=== PATIENT | female | born 1975 | race Caucasian/White ===

== ENCOUNTER → 2016-11-12 | Outpatient (REF) | payer BC ==
[~2016-11-12] MED LIST: EFFE37.527 PO; IBUP80TA PO; LIDO1OIN2 TOP
== END ==
LOC: M SFHCWAGY 08:44
PROVIDERS: ATTEND Nurse Practitioner Women's Health
DX: Z12.4 Encounter for screening for malignant neoplasm of cervix (principal)

== ENCOUNTER → 2016-11-25 | Outpatient (CLI) | payer BC ==
--- NOTE | 2016-11-25 14:46 | REPMRS ---
Patient History The patient states she had a clinical breast exam in 11/26 Baseline Mammogram Family history of breast cancer in maternal cousin under age 50. Digital Woman Screen Mammo: November 25, 2016 - Exam #: [id number] Bilateral CC and MLO view(s) were taken. Technologist: Graciela Guevara, Technologist No prior studies available for comparison. FINDINGS: There are scattered fibroglandular densities. There is no evidence of dominant mass, architectural distortion, or clustered microcalcification typical of malignancy. ASSESSMENT: BI-RADS/ACR category 1 mammogram. Negative. Recommendation Routine screening mammogram of both breasts in 1 year (for women over age 40). This mammogram was interpreted with the aid of an FDA-approved computer-aided dectection system. Electronically Signed By: Sunny Kaur MD 11/25/16 5999
== END ==
LOC: M WHC 11:22
PROVIDERS: ATTEND Nurse Practitioner Women's Health
DX: Z12.31 Encounter for screening mammogram for malignant neoplasm of breast (principal); Z80.3 Family history of malignant neoplasm of breast

== ENCOUNTER → 2017-02-18 | Outpatient (CLI) | payer BC ==
[2017-02-18 18:09] LABS: FREE T4 0.85 NG/DL (0.76-1.46)
[2017-02-18 18:14] LABS: THYROID PEROXIDASE ANTIBODY < 28.0 U/ML (<60.0)
== END ==
LOC: M LAB 17:02
PROVIDERS: ATTEND Family Medicine
DX: E04.9 Nontoxic goiter, unspecified (principal)

== ENCOUNTER → 2017-02-22 | Outpatient (CLI) | payer BC ==
--- NOTE | 2017-02-23 07:17 | REP ---
Clinical: Nontoxic goiter. Technique: Real time dobbs scale evaluation using linear high frequency transducer. Findings: With the exception of 2 mm nonspecific cysts in the left lobe and 10.5 x 5.8 x 6.2 mm nonspecific nodule in the lower pole left lobe, the examination is unremarkable. Right lobe measures 4.5 x 1.6 x 1.6 cm. Left lobe measures 3.5 x 1.6 x 1.0 cm. Isthmus measures 1.4 mm in width. Impression: 10.5 mm nonspecific nodule in the lower pole left lobe. Otherwise normal thyroid ultrasound. Signed by Wayne Colunga MD 02/23/2017 07:08 A
== END ==
LOC: M RAD 14:45
PROVIDERS: ATTEND Family Medicine
DX: E04.1 Nontoxic single thyroid nodule (principal)

== ENCOUNTER → 2017-09-15 | Outpatient (CLI) | payer BC ==
[2017-09-15 09:26] LABS: ALBUMIN 4.3 GM/DL (3.2-5.2); ALBUMIN/GLOBULIN RATIO 1.54 (1.00-1.93); ALKALINE PHOSPHATASE 76 U/L (45-117); ALT/SGPT 29 U/L (12-78); ANION GAP 6 MEQ/L (8-16); AST/SGOT 17 U/L (7-37); BILIRUBIN,TOTAL 0.5 MG/DL (0.2-1.0); BLOOD UREA NITROGEN 14 MG/DL (7-18); CALCIUM LEVEL 8.8 MG/DL (8.5-10.1); CARBON DIOXIDE LEVEL 29 MEQ/L (21-32); CHLORIDE LEVEL 108 MEQ/L (98-107); CREATININE FOR GFR 0.86 MG/DL (0.55-1.02); FREE T4 0.98 NG/DL (0.76-1.46); GLOMERULAR FILTRATION RATE > 60.0 (>58); GLUCOSE, FASTING 84 MG/DL (70-105); POTASSIUM SERUM 4.1 MEQ/L (3.5-5.1); SODIUM LEVEL 143 MEQ/L (136-145); TOTAL PROTEIN 7.1 GM/DL (6.4-8.2)
== END ==
LOC: M LAB 08:24
DX: Z13.29 Encounter for screening for other suspected endocrine disorder (principal)
CPT/HCPCS: 84443

== ENCOUNTER → 2017-11-29 | Outpatient (CLI) | payer BC | LOC: M RAD 17:28 | DX: R51 Headache (principal) | CPT/HCPCS: 70450 ==

== ENCOUNTER → 2018-01-10 | Outpatient (CLI) | payer BC ==
[2018-01-10 19:05] LABS: ANION GAP 8 MEQ/L (8-16); BLOOD UREA NITROGEN 15 MG/DL (7-18); CARBON DIOXIDE LEVEL 23 MEQ/L (21-32); CHLORIDE LEVEL 106 MEQ/L (98-107); CPK CREATINE PHOSPHOKINASE 110 U/L (26-192); CREATININE FOR GFR 0.88 MG/DL (0.55-1.30); GLOMERULAR FILTRATION RATE > 60.0 (>58); GLUCOSE, FASTING 95 MG/DL (70-100); MAGNESIUM LEVEL 1.9 MG/DL (1.8-2.4); POTASSIUM SERUM 3.5 MEQ/L (3.5-5.1); SODIUM LEVEL 137 MEQ/L (136-145)
== END ==
LOC: M LAB 17:37
DX: A09 Infectious gastroenteritis and colitis, unspecified (principal)

== ENCOUNTER → 2018-06-05 | Outpatient (CLI) | payer BC ==
[2018-06-05 08:35] LABS: BASO % 0.3 % (0.0-1.0); HEMATOCRIT 42.6 % (36.0-47.0); HEMOGLOBIN 13.4 g/dl (12.0-15.5); IMMATURE GRANULOCYTE % 0.5 % (0-3.0); LYMPH # 1.4 10^3/uL (1.5-4.5); LYMPH % 23.1 % (24.0-44.0); MEAN CORPUSCULAR HEMOGLOBIN 25.6 pg (27.0-33.0); MEAN CORPUSCULAR HGB CONC 31.5 g/dl (32.0-36.5); MEAN CORPUSCULAR VOLUME 81.5 fl (80.0-96.0); MONO # 0.5 10^3/uL (0.0-0.8); NEUTROPHILS % 68.1 % (36.0-66.0); PLATELET COUNT, AUTOMATED 194 10^3/uL (150-450); RED BLOOD COUNT 5.23 10^6/uL (4.00-5.40); WHITE BLOOD COUNT 5.9 10^3/uL (4.0-10.0)
[2018-06-05 09:37] LABS: ANION GAP 8 MEQ/L (8-16); BLOOD UREA NITROGEN 18 MG/DL (7-18); CALCIUM LEVEL 8.4 MG/DL (8.5-10.1); CARBON DIOXIDE LEVEL 23 MEQ/L (21-32); CHLORIDE LEVEL 114 MEQ/L (98-107); CHOLESTEROL LEVEL 147 MG/DL (<200); CREATININE FOR GFR 1.04 MG/DL (0.55-1.30); GLOMERULAR FILTRATION RATE > 60.0 (>58); GLUCOSE, FASTING 85 MG/DL (70-100); HDL CHOLESTEROL 62 MG/DL (>40); LDL CHOLESTEROL 78 MG/DL (<100); NON-HDL-C 85 MG/DL; POTASSIUM SERUM 4.4 MEQ/L (3.5-5.1); SODIUM LEVEL 145 MEQ/L (136-145); TRIGLYCERIDES LEVEL 33 MG/DL (<150)
== END ==
LOC: M LAB 07:53
DX: E04.9 Nontoxic goiter, unspecified (principal); E66.8 Other obesity; R51 Headache
CPT/HCPCS: 84443

== ENCOUNTER → 2018-08-02 | Outpatient (CLI) | payer BC | LOC: M PAIN 16:00 | DX: G93.2 Benign intracranial hypertension (principal); G43.909 Migraine, unspecified, not intractable, without status migrainosus; F32.9 Major depressive disorder, single episode, unspecified; H18.51 Endothelial corneal dystrophy; Z79.899 Other long term (current) drug therapy; Z87.891 Personal history of nicotine dependence | CPT/HCPCS: G0463 ==

== ENCOUNTER → 2018-08-02 | Outpatient (CLI) | payer BC | LOC: M PAIN 16:01 | DX: G93.9 Disorder of brain, unspecified (principal); G89.29 Other chronic pain; F32.9 Major depressive disorder, single episode, unspecified; H18.51 Endothelial corneal dystrophy; G43.909 Migraine, unspecified, not intractable, without status migrainosus; E07.9 Disorder of thyroid, unspecified; Z79.899 Other long term (current) drug therapy; Z87.891 Personal history of nicotine dependence | CPT/HCPCS: G0463 ==

== ENCOUNTER → 2018-09-28 | Outpatient (CLI) | payer BC ==
[~2018-09-28] MED LIST changes: +EFFE37.5 PO; -EFFE37.527 PO; +LIDOCAINE 1% SDV INJ 30 ML VIAL As Ordered ONE; +MIDAZOLAM INJ 2 MG/2 ML VIAL (J2250) As Ordered ONE; +fentaNYL 100 MCG/2 ML INJECTION (J3010) As Ordered ONE
[2018-09-28 16:11] LABS: APPEARANCE, CSF CLEAR (CLEAR); COLOR, CSF COLORLESS (COLORLESS); CSF TUBE# CELL CNT TUBE 3
[2018-09-28 16:22] LABS: CSF TUBE# GLU TUBE 1; CSF TUBE# TP TUBE 1; GLUCOSE CSF 47 MG/DL (40-75); TOTAL PROTEIN,CSF 61 MG/DL (15-45)
--- NOTE | 2018-10-16 00:59 | ECWPNPC ---
PATIENT NAME: RIAN HWANG : 1975 GENDER: FEMALE VISIT DATE: 09/28/2018 DISCHARGE DATE: 09/28/18 1557 VISIT LOCKED DATE TIME: PHYSICIAN: MIGDALIA DE LA TORRE MD RESOURCE: MIGDALIA DE LA TORRE MD REASON FOR APPOINTMENT 1. SPINAL TAP HISTORY OF PRESENT ILLNESS HISTORY OF PRESENT ILLNESS: PAIN THE PATIENT DESCRIBES THE PAIN... FALL RISK SCREENING: SCREENING :NO FALLS IN THE PAST YEAR CURRENT MEDICATIONS TAKING SUDAFED 12 HOUR 120 MG TABLET EXTENDED RELEASE 1 TABLET NEEDED ORALLY EVERY 12 HRS, NOTES: BEEN A WHILE TAKING ALBUTEROL SULFATE HFA 108 (90 BASE) MCG/ACT AEROSOL SOLUTION 2 PUFFS NEEDED INHALATION EVERY 4 HRS PRN WHEEZING/CHEST TIGHTNESS, NOTES: NOT LATELY TAKING PRILOSEC 20 MG CAPSULE DELAYED RELEASE 2 CAPSULES ORALLY ONCE A DAY, NOTES: 09-28-18599 TAKING CYMBALTA 60 MG CAPSULE DELAYED RELEASE PARTICLES 1 CAPSULE ORALLY ONCE A DAY, NOTES: 09-28-18599 TAKING ACETAZOLAMIDE 250 MG TABLET 1 TABLET ORALLY BID, NOTES: 10 DAYS TAKING ZONISAMIDE 100 MG CAPSULE 1 CAPSULE ORALLY ONCE A DAY, NOTES: 599 TAKING RESTASIS 0.05 % EMULSION 1 DROP INTO AFFECTED EYE OPHTHALMIC TWICE A DAY, NOTES: 09-28 TAKING SYSTANE 0.4-0.3 % SOLUTION OPHTHALMIC , NOTES: 09-28-18599 TAKING CASH 128 5 % SOLUTION 1 DROP INTO AFFECTED EYE OPHTHALMIC EVERY 4 HRS, NOTES: 09-30-18599 TAKING GABAPENTIN 100 MG CAPSULE 1 CAPSULE ORALLY THREE TIMES A DAY, NOTES: HAS NOT TAKEN IN A LONG TIME TAKING NAPROXEN 500 MG TABLET 1 TABLET NEEDED ORALLY EVERY 12 HRS X 1 WEEK THEN NEEDED, NOTES: NOT LATELY UNKNOWN EFFEXOR XR 37.5 MG CAPSULE EXTENDED RELEASE 24 HOUR 1 CAPSULE WITH FOOD ORALLY ONCE A DAY UNKNOWN TYLENOL ARTHRITIS PAIN 1 TAB ORALLY BID UNKNOWN VITAMIN D (CHOLECALCIFEROL) 2000 TABLET 1 TABLET ORALLY ONCE A DAY UNKNOWN ZANAFLEX 4 MG TABLET 1 TABLET NEEDED ORALLY EVERY 8 HRS PRN MUSCLE SPASMS UNKNOWN ZITHROMAX Z-BONNIE 250 MG TABLET 2 TABLETS ON THE FIRST DAY, THEN 1 TABLET DAILY FOR 4 DAYS ORALLY ONCE A DAY UNKNOWN VENTOLIN HFA 108 (90 BASE) MCG/ACT AEROSOL SOLUTION 2 PUFFS NEEDED INHALATION EVERY 4 HRS PRN FOR WHEEZING AND CHEST TIGHTNESS UNKNOWN MULTIVITAMINS OTC TABLET 1 TABLET ORALLY ONCE A DAY MEDICATION LIST REVIEWED AND RECONCILED WITH THE PATIENT PAST MEDICAL HISTORY DEPRESSION 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 SURGICAL HISTORY D&C 2005 UTERINE ABLATION 2005 TUBAL LIGATION 2005 FAMILY HISTORY FATHER: , CAD, [place], LUNG CA, HTN, HYPERCHOLESTEROLEMIA, DIAGNOSED WITH HEART DISEASE, CANCER IN 4 MOTHER: , DM, KIDNEY DISEASE, HTN, HYPERCHOLESTEROLEMIA, DIAGNOSED WITH DIABETES, STROKE SIBLINGS: HTN SON(S): CONGENITAL MITRAL VALVE DISORDER MATERNAL AUNT: THYROID CANCER 4 BROTHER(S) , 4 SISTER(S) . 1 SON(S) , 1 DAUGHTER(S) - HEALTHY. NO OVARIAN, OR COLORECTAL CANCER, COUSIN DIAGNOSED WITH BREAST CANCERSISTER - TILTED HEART OF THE RIGHT ORIGINSISTER - HYPOTHYROIDBROTHERS - HTN. HOSPITALIZATION/MAJOR DIAGNOSTIC PROCEDURE NO HOSPITALIZATION HISTORY. REVIEW OF SYSTEMS REVIEWED BY: PROVIDER: . CONSTITUTIONAL: ANY CHANGE IN YOUR MEDICAL CONDITION? NO . CHILLS NO . FEVER NO . INFECTION: DO YOU HAVE NEW INFECTIONS? NO . DO YOU HAVE HISTORY OF MRSA? NO . MUSCULOSKELETAL: ANY NEW PATTERNS OF PAIN OR NUMBNESS? NO . GASTROENTEROLOGY: ANY NEW CHANGE IN BOWEL CONTROL? NO . GENITOURINARY: ANY NEW CHANGE IN BLADDER CONTROL? NO . IS THERE A CHANCE YOU COULD BE ? NO . HEMATOLOGY/LYMPH: DO YOU TAKE ANY BLOOD THINNERS? (FOR EXAMPLE- COUMADIN, PLAVIX, AGGRENOX, PLATEL, PRADAXA, OR XARELTO) NO . WHEN WAS YOUR LAST DOSE? DATE: TIME: . NEUROLOGY: HAVE YOU FALLEN IN THE PAST 12 MONTHS? NO . ANY NEW EXTREMITY NUMBNESS OR WEAKNESS? NO . CARDIOLOGY: DO YOU HAVE A PACEMAKER OR DEFIBRILLATOR? NO . RESPIRATORY: HAVE YOU BEEN SICK IN THE PAST WEEK? NO . FEVER NO . FLU LIKE SYMPTOMS? NO . COUGH NO . INTEGUMENTARY: DO YOU HAVE ANY RASHES OR OPEN SORES? NO . ALLERGIC/IMMUNO: ARE YOU ALLERGIC TO IV DYE? NO . ANY NEW ALLERGIES? NO . PSYCHIATRIC: DO YOU HAVE THOUGHTS OF HURTING YOURSELF OR SOMEONE ELSE? NO . ARE YOU ABUSED, NEGLECTED, OR IN AN UNSAFE ENVIRONMENT? NO . ENDOCRINOLOGY: ARE YOU DIABETIC? NO . OTHER: DO YOU NEED ANY PRESCRIPTIONS? NO . IF YES, PLEASE LIST: ____ . ANY NEW PROBLEMS WITH YOUR MEDICATIONS? NO . WHEN DID YOU LAST EAT? ____LAST NIGHT 7 PM . WHEN DID YOU LAST DRINK? ____1140 THIS MORNING . WHAT DID YOU LAST DRINK? ____WATER . NAME OF PERSON DRIVING YOU HOME? ____MICHAEL . DO YOU HAVE ANY OTHER QUESTIONS OR CONCERNS NO . VITAL SIGNS WT 159.2 LBS, HT 59.5 IN, BMI 31.61 INDEX, BP 151/91 MM HG, HR 87 /MIN, RR 16 /MIN, TEMP 97.1 F, OXYGEN SAT % 99%, NA INITIALS SC 12:45, REVIEWED BY: KG. 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 PROCEDURE CODES 07704 MOD SED SAME PHYS/QHP 5/>YRS 974[address] MOD SED SAME PHYS/[place] [address] SPINAL FLUID TAP DIAGNOSTIC DISPOSITION & COMMUNICATION FOLLOW UP REASON: F/UP WITH NEUROLOGIST ELECTRONICALLY SIGNED BY MIGDALIA DE LA TORRE MD, MD ON 10/15/2018 AT 05:49 PM EST DISCLAIMER : THIS IS A VISIT SUMMARY EXTRACTED FROM THE [employer] CHART. IT IS NOT A COPY OF THE [employer] PROGRESS NOTE. MTDD
== END ==
LOC: M PAIN 12:30
PROVIDERS: ATTEND Anesthesiology
DX: G93.2 Benign intracranial hypertension (principal); G43.909 Migraine, unspecified, not intractable, without status migrainosus; H18.51 Endothelial corneal dystrophy; F32.9 Major depressive disorder, single episode, unspecified; Z79.899 Other long term (current) drug therapy
CPT/HCPCS: 36415; 62270; 82784; 82945; 83916; 84157; 87070; 87102; 87205; 87252; 87483; 88108; 88313; 89050; 99152; 99153; J2250; J3010

== ENCOUNTER → 2019-01-03 | Outpatient (REF) | payer BC ==
[~2019-01-03] MED LIST changes: -LIDOCAINE 1% SDV INJ 30 ML VIAL As Ordered ONE; -MIDAZOLAM INJ 2 MG/2 ML VIAL (J2250) As Ordered ONE; -fentaNYL 100 MCG/2 ML INJECTION (J3010) As Ordered ONE
[2019-01-05 14:26] LABS: HPV HYBRID CAPTURE II Negative (Negative)
== END ==
LOC: M SFHCWAGY 08:32
PROVIDERS: ATTEND Nurse Practitioner Women's Health
DX: Z12.4 Encounter for screening for malignant neoplasm of cervix (principal)
CPT/HCPCS: 87624; G0123

== ENCOUNTER → 2019-03-21 | Outpatient (CLI) | payer BC ==
--- NOTE | 2019-03-21 16:27 | REPMRS ---
Patient History The patient states she had a clinical breast exam in 12/2018. Family history of breast cancer at age 42 in maternal cousin. No Hormone Replacement Therapy 3D TOMOSYNTHESIS WAS PERFORMED. [facility] for [facility] 11.6%. Digital Woman Screen Mammo: March 21, 2019 - Exam #: [id number] Bilateral CC and MLO view(s) were taken. Technologist: Carolin Barbosa, Technologist Prior study comparison: November 25, 2016, digital woman screen mammo performed at [facility]. FINDINGS: There are scattered fibroglandular densities. There has been no change in the appearance of the mammogram from the prior studies. There is a mild amount of residual fibroglandular tissue which is fairly symmetric. There is no interval development of dominant mass, architectural distortion, or clustered microcalcification suggestive of malignancy. Assessment: BI-RADS/ACR category 1 mammogram. Negative Mammogram. Recommendation Routine screening mammogram in 1 year (for women over age 40). This mammogram was interpreted with the aid of an FDA-approved computer-aided dectection system. Electronically Signed By: Jaime Godfrey MD 03/21/19 8447
== END ==
LOC: M WHC 14:54
PROVIDERS: ATTEND Nurse Practitioner Women's Health
DX: Z12.31 Encounter for screening mammogram for malignant neoplasm of breast (principal); Z80.3 Family history of malignant neoplasm of breast

== ENCOUNTER → 2019-06-26 | Outpatient (CLI) | payer BC ==
[2019-06-26 10:05] LABS: BASO % 0.4 % (0.0-1.0); EOS % 0.2 % (0.0-3.0); HEMATOCRIT 40.9 % (36.0-47.0); HEMOGLOBIN 12.8 g/dl (12.0-15.5); LYMPH # 1.4 10^3/uL (1.5-5.0); LYMPH % 28.8 % (24.0-44.0); MEAN CORPUSCULAR HEMOGLOBIN 26.2 pg (27.0-33.0); MEAN CORPUSCULAR HGB CONC 31.3 g/dl (32.0-36.5); MEAN CORPUSCULAR VOLUME 83.6 fl (80.0-96.0); MONO # 0.4 10^3/uL (0.0-0.8); MONO % 8.2 % (0.0-5.0); PLATELET COUNT, AUTOMATED 161 10^3/uL (150-450); RED BLOOD COUNT 4.89 10^6/uL (4.00-5.40); WHITE BLOOD COUNT 4.9 10^3/uL (4.0-10.0)
[2019-06-26 10:16] LABS: BLOOD UREA NITROGEN 20 MG/DL (7-18); CALCIUM LEVEL 8.9 MG/DL (8.5-10.1); CARBON DIOXIDE LEVEL 24 MEQ/L (21-32); CHLORIDE LEVEL 115 MEQ/L (98-107); CHOLESTEROL LEVEL 166 MG/DL (<200); CHOLESTEROL RISK RATIO 2.371 (<5); CREATININE FOR GFR 1.01 MG/DL (0.55-1.30); FREE T4 0.68 NG/DL (0.76-1.46); GLOMERULAR FILTRATION RATE > 60.0 (>58); GLUCOSE, FASTING 86 MG/DL (70-100); HDL CHOLESTEROL 70 MG/DL (>40); LDL CHOLESTEROL 85 MG/DL (<100); NON-HDL-C 96 MG/DL; POTASSIUM SERUM 4.2 MEQ/L (3.5-5.1); SODIUM LEVEL 143 MEQ/L (136-145); TRIGLYCERIDES LEVEL 54 MG/DL (<150)
== END ==
LOC: M SMT 08:17
PROVIDERS: ATTEND Physician Assistant
DX: E04.9 Nontoxic goiter, unspecified (principal); E66.8 Other obesity; R51 Headache

== ENCOUNTER → 2019-11-06 | Outpatient (CLI) | payer BC ==
[2019-11-06 10:09] LABS: BASO % 0.5 % (0.0-1.0); EOS % 0.2 % (0.0-3.0); HEMATOCRIT 41.5 % (36.0-47.0); HEMOGLOBIN 13.3 g/dl (12.0-15.5); LYMPH # 1.6 10^3/uL (1.5-5.0); LYMPH % 28.6 % (24.0-44.0); MEAN CORPUSCULAR HEMOGLOBIN 26.3 pg (27.0-33.0); MEAN CORPUSCULAR VOLUME 82.2 fl (80.0-96.0); MONO # 0.5 10^3/uL (0.0-0.8); MONO % 9.4 % (0.0-5.0); NEUTROPHILS # 3.4 10^3/uL (1.5-8.5); NEUTROPHILS % 60.8 % (36.0-66.0); PLATELET COUNT, AUTOMATED 146 10^3/uL (150-450); RED BLOOD COUNT 5.05 10^6/uL (4.00-5.40); WHITE BLOOD COUNT 5.6 10^3/uL (4.0-10.0)
[2019-11-06 10:24] LABS: BLOOD UREA NITROGEN 18 MG/DL (7-18); CALCIUM LEVEL 8.8 MG/DL (8.5-10.1); CARBON DIOXIDE LEVEL 25 MEQ/L (21-32); CHLORIDE LEVEL 112 MEQ/L (98-107); CREATININE FOR GFR 1.06 MG/DL (0.55-1.30); FREE T4 0.79 NG/DL (0.76-1.46); GLOMERULAR FILTRATION RATE > 60.0 (>58); GLUCOSE, FASTING 87 MG/DL (70-100); POTASSIUM SERUM 3.9 MEQ/L (3.5-5.1); SODIUM LEVEL 142 MEQ/L (136-145)
== END ==
LOC: M WUC 08:13
PROVIDERS: ATTEND Physician Assistant
DX: R60.9 Edema, unspecified (principal)

== ENCOUNTER → 2020-08-29 | Outpatient (CLI) | payer BC ==
--- NOTE | 2020-08-29 09:39 | REPMRS ---
Patient History The patient states she had a clinical breast exam in 03/01 Family history of breast cancer at age 42 in maternal cousin. No Hormone Replacement Therapy Digital Woman Screen Mammo: August 29, 2020 - Exam #: [id number] Bilateral CC and MLO view(s) were taken. Technologist: Graciela Guevara, Technologist Prior study comparison: March 21, 2019, [facility] November 25, 2016, [facility] screen [facility]. FINDINGS: The breast tissue is almost entirely fat. The Vol[facility] volumetric breast density category is: A. There has been no change in the appearance of the mammogram from the prior studies. There is no interval development of dominant mass, architectural distortion, or grouped microcalcification typical of malignancy. 3-D tomosynthesis shows no additional findings. Assessment: BI-RADS/ACR category 1 mammogram. Negative Mammogram. Recommendation Routine screening mammogram of both breasts in 1 year (for women over age 40). This patient's [facility] Lifetime Breast Cancer RIsk is estimated at 11.4 %. This mammogram was interpreted with the aid of an FDA-approved computer-aided dectection system. Electronically Signed By: Sunny Kaur MD 08/29/20 0908
== END ==
LOC: M WHC 08:49
PROVIDERS: ATTEND Physician Assistant
DX: Z12.31 Encounter for screening mammogram for malignant neoplasm of breast (principal)

== ENCOUNTER → 2020-11-07 | Outpatient (CLI) | payer BC ==
[2020-11-07 07:16] LABS: BASO % 0.8 % (0.0-1.0); EOS % 0.2 % (0.0-3.0); HEMATOCRIT 44.7 % (36.0-47.0); HEMOGLOBIN 13.8 g/dl (12.0-15.5); LYMPH # 1.1 10^3/uL (1.5-5.0); LYMPH % 22.6 % (24.0-44.0); MEAN CORPUSCULAR HEMOGLOBIN 25.7 pg (27.0-33.0); MEAN CORPUSCULAR HGB CONC 30.9 g/dl (32.0-36.5); MEAN CORPUSCULAR VOLUME 83.4 fl (80.0-96.0); MONO # 0.6 10^3/uL (0.0-0.8); MONO % 13.2 % (2.0-8.0); PLATELET COUNT, AUTOMATED 157 10^3/uL (150-450); RED BLOOD COUNT 5.36 10^6/uL (4.00-5.40); WHITE BLOOD COUNT 4.8 10^3/uL (4.0-10.0)
[2020-11-07 07:56] LABS: BILIRUBIN,TOTAL 0.3 MG/DL (0.2-1.0); CREATININE FOR GFR 1.07 MG/DL (0.55-1.30); FREE T4 0.77 NG/DL (0.76-1.46); GLOMERULAR FILTRATION RATE 59.6 (>58); POTASSIUM SERUM 3.8 MEQ/L (3.5-5.1); THYROID STIMULATING HORMONE 2.86 uIU/ML (0.358-3.740); TOTAL PROTEIN 6.9 GM/DL (6.4-8.2)
== END ==
LOC: M LAB 05:58
PROVIDERS: ATTEND Physician Assistant
DX: R53.83 Other fatigue (principal)

== ENCOUNTER → 2021-08-04 | Outpatient (CLI) | payer BC ==
[2021-08-04 08:18] LABS: BASO % 0.4 % (0.0-1.0); HEMOGLOBIN 14.1 g/dl (12.0-15.5); LYMPH # 0.8 10^3/uL (1.5-5.0); MEAN CORPUSCULAR HEMOGLOBIN 25.8 pg (27.0-33.0); MEAN CORPUSCULAR HGB CONC 31.3 g/dl (32.0-36.5); MEAN CORPUSCULAR VOLUME 82.4 fl (80.0-96.0); MONO # 0.4 10^3/uL (0.0-0.8); MONO % 8.9 % (2.0-8.0); NEUTROPHILS # 3.4 10^3/uL (1.5-8.5); NEUTROPHILS % 73.3 % (36.0-66.0); PLATELET COUNT, AUTOMATED 165 10^3/uL (150-450); RED BLOOD COUNT 5.46 10^6/uL (4.00-5.40); WHITE BLOOD COUNT 4.6 10^3/uL (4.0-10.0)
--- NOTE | 2021-08-04 08:30 | REP ---
INDICATION: GENERALIZED ANXIETY DISORDER COMPARISON: 08/25/2006 TECHNIQUE: PA and lateral. FINDINGS: The mediastinum and cardiac silhouette are normal. The lung blas are clear and without acute consolidation, effusion, or pneumothorax. The skeletal structures are intact and normal. Previously identified right upper lobe opacity is not visible on current examination and likely resolved. IMPRESSION: No acute cardiopulmonary process. <Electronically signed by Wayne Colunga > 08/04/21 0831
[2021-08-04 08:54] LABS: ALBUMIN 4.1 GM/DL (3.2-5.2); ALT/SGPT 18 U/L (12-78); BILIRUBIN,TOTAL 0.3 MG/DL (0.2-1.0); BLOOD UREA NITROGEN 14 MG/DL (7-18); CALCIUM LEVEL 8.8 MG/DL (8.5-10.1); CARBON DIOXIDE LEVEL 24 MEQ/L (21-32); CHLORIDE LEVEL 115 MEQ/L (98-107); CHOLESTEROL LEVEL 139 MG/DL (<200); CHOLESTEROL RISK RATIO 2.278 (<5); CREATININE FOR GFR 1.03 MG/DL (0.55-1.30); FREE T4 0.84 NG/DL (0.76-1.46); GLOMERULAR FILTRATION RATE > 60.0 (>58); GLUCOSE, FASTING 93 MG/DL (70-100); HDL CHOLESTEROL 61 MG/DL (>40); LDL CHOLESTEROL 71 MG/DL (<100); NON-HDL-C 78 MG/DL; POTASSIUM SERUM 4.1 MEQ/L (3.5-5.1); SODIUM LEVEL 144 MEQ/L (136-145); TOTAL PROTEIN 6.9 GM/DL (6.4-8.2); TRIGLYCERIDES LEVEL 33 MG/DL (<150)
== END ==
LOC: M RAD 07:28
PROVIDERS: ATTEND Physician Assistant
DX: F41.1 Generalized anxiety disorder (principal)

== ENCOUNTER 2022-06-05 13:06 | Emergency (ER) | payer BC ==
[~2022-06-05] VITALS: Ht 149.9 cm; Wt 72.4 kg
[2022-06-05] MEDS ORDERED: FLUO10CA18 (13:17)
[2022-06-05] MEDS ORDERED: ESOM40CA35 (13:17)
[2022-06-05] MEDS ORDERED: GABA800T4 (13:17)
[2022-06-05] MEDS ORDERED: FLUO1OPD (13:17)
[2022-06-05 14:19] LABS: BASO % 0.2 % (0.0-1.0); HEMATOCRIT 40.5 % (36.0-47.0); HEMOGLOBIN 12.5 g/dl (12.0-15.5); LYMPH # 1.7 10^3/uL (1.5-5.0); LYMPH % 25.2 % (24.0-44.0); MEAN CORPUSCULAR HGB CONC 30.9 g/dl (32.0-36.5); MEAN CORPUSCULAR VOLUME 84.2 fl (80.0-96.0); MONO # 0.6 10^3/uL (0.0-0.8); MONO % 9.2 % (2.0-8.0); NEUTROPHILS # 4.3 10^3/uL (1.5-8.5); NEUTROPHILS % 65.1 % (36.0-66.0); PLATELET COUNT, AUTOMATED 192 10^3/uL (150-450); RED BLOOD COUNT 4.81 10^6/uL (4.00-5.40); WHITE BLOOD COUNT 6.7 10^3/uL (4.0-10.0)
[2022-06-05 14:43] LABS: ERYTHROCYTE SEDIMENTATION RATE 20 mm/hr (0-20)
[2022-06-05 14:54] LABS: ALBUMIN 4.1 GM/DL (3.2-5.2); ALT/SGPT 19 U/L (12-78); BILIRUBIN,DIRECT 0.1 MG/DL (0.0-0.2); BILIRUBIN,TOTAL 0.4 MG/DL (0.2-1.0); BLOOD UREA NITROGEN 8 MG/DL (7-18); CALCIUM LEVEL 8.7 MG/DL (8.5-10.1); CARBON DIOXIDE LEVEL 30 MEQ/L (21-32); CHLORIDE LEVEL 103 MEQ/L (98-107); GLOMERULAR FILTRATION RATE > 60.0 (>58); GLUCOSE, FASTING 79 MG/DL (70-100); LIPASE 74 U/L (73-393); POTASSIUM SERUM 3.6 MEQ/L (3.5-5.1); SODIUM LEVEL 138 MEQ/L (136-145); TOTAL PROTEIN 7.2 GM/DL (6.4-8.2)
[2022-06-05] MEDS ORDERED: METH-1164 PO (15:22)
[2022-06-05 15:28] VITALS: BP 131/68
== END 2022-06-05 15:54 | disposition home or self-care (01) ==
LOC: M ED 13:06
DX: R10.12 Left upper quadrant pain (principal); G89.29 Other chronic pain; M54.50 Low back pain, unspecified; Z86.16 Personal history of COVID-19; F41.9 Anxiety disorder, unspecified; K21.9 Gastro-esophageal reflux disease without esophagitis; Z79.899 Other long term (current) drug therapy

== ENCOUNTER → 2022-06-09 | Outpatient (CLI) | payer BC ==
[~2022-06-09] MED LIST changes: +ESOM40CA35; +FLUO10CA18; +FLUO1OPD; +GABA800T4; +METH-1164 PO
[2022-06-09 08:32] LABS: HEMATOCRIT 42.5 % (36.0-47.0); HEMOGLOBIN 13.3 g/dl (12.0-15.5); LYMPH # 1.2 10^3/uL (1.5-5.0); LYMPH % 26.1 % (24.0-44.0); MEAN CORPUSCULAR HEMOGLOBIN 26.3 pg (27.0-33.0); MEAN CORPUSCULAR HGB CONC 31.3 g/dl (32.0-36.5); MONO # 0.4 10^3/uL (0.0-0.8); MONO % 9.3 % (2.0-8.0); NEUTROPHILS # 3.1 10^3/uL (1.5-8.5); NEUTROPHILS % 64.2 % (36.0-66.0); PLATELET COUNT, AUTOMATED 209 10^3/uL (150-450); RED BLOOD COUNT 5.06 10^6/uL (4.00-5.40); WHITE BLOOD COUNT 4.8 10^3/uL (4.0-10.0)
[2022-06-09 09:03] LABS: ALBUMIN 4.2 GM/DL (3.2-5.2); BILIRUBIN,TOTAL 0.3 MG/DL (0.2-1.0); CALCIUM LEVEL 9.5 MG/DL (8.5-10.1); CHOLESTEROL RISK RATIO 2.32 (<5); CREATININE FOR GFR 1.09 MG/DL (0.55-1.30); FREE T4 0.92 NG/DL (0.76-1.46); GLOMERULAR FILTRATION RATE 57.8 (>58); POTASSIUM SERUM 4.2 MEQ/L (3.5-5.1); THYROID STIMULATING HORMONE 1.41 uIU/ML (0.358-3.740); TOTAL PROTEIN 7.5 GM/DL (6.4-8.2)
[2022-06-09 09:26] LABS: TOTAL 25(OH) VITAMIN D 32.2 NG/ML (30.0-100.0)
== END ==
LOC: M LAB 07:37
PROVIDERS: ATTEND Family Medicine
DX: E55.9 Vitamin D deficiency, unspecified (principal)

== ENCOUNTER → 2022-06-12 | Outpatient (CLI) | payer BC | LOC: M RAD 08:29 | PROVIDERS: ATTEND Nurse Practitioner Adult Health | DX: M54.50 Low back pain, unspecified (principal) ==

== ENCOUNTER → 2022-11-25 | Outpatient (CLI) | payer BC | LOC: M WHC 08:55 | PROVIDERS: ATTEND Advanced Practice Midwife | DX: Z12.31 Encounter for screening mammogram for malignant neoplasm of breast (principal) ==

== ENCOUNTER → 2022-11-25 | Outpatient (REF) | payer BC | LOC: M PLALAB 09:25 | PROVIDERS: ATTEND Advanced Practice Midwife | DX: Z12.4 Encounter for screening for malignant neoplasm of cervix (principal) | CPT/HCPCS: 87624; G0123 ==

== ENCOUNTER → 2022-12-02 | Outpatient (CLI) | payer BC | LOC: M ADAMS 07:59 | PROVIDERS: ATTEND Nurse Practitioner Adult Health | DX: M54.12 Radiculopathy, cervical region (principal) ==

== ENCOUNTER → 2023-04-21 | Outpatient (CLI) | payer BC ==
[2023-04-21 10:45] LABS: HEMATOCRIT 43.1 % (36.0-47.0); HEMOGLOBIN 14.3 g/dl (12.0-15.5); LYMPH # 1.7 10^3/uL (1.5-5.0); LYMPH % 30.6 % (24.0-44.0); MEAN CORPUSCULAR HEMOGLOBIN 27.9 pg (27.0-33.0); MEAN CORPUSCULAR HGB CONC 33.2 g/dl (32.0-36.5); MEAN CORPUSCULAR VOLUME 84.2 fl (80.0-96.0); MONO # 0.5 10^3/uL (0.0-0.8); MONO % 9.6 % (2.0-8.0); NEUTROPHILS # 3.3 10^3/uL (1.5-8.5); NEUTROPHILS % 59.4 % (36.0-66.0); PLATELET COUNT, AUTOMATED 170 10^3/uL (150-450); RED BLOOD COUNT 5.12 10^6/uL (4.00-5.40); WHITE BLOOD COUNT 5.5 10^3/uL (4.0-10.0)
[2023-04-21 11:24] LABS: ALKALINE PHOSPHATASE 79 U/L (46-116); ALT/SGPT 18 U/L (7.0-40); AST/SGOT 10 U/L (<34); BILIRUBIN,TOTAL 0.3 MG/DL (0.3-1.2); BLOOD UREA NITROGEN 17 MG/DL (9-23); CALCIUM LEVEL 9.5 MG/DL (8.5-10.1); CARBON DIOXIDE LEVEL 31 MMOL/L (20-31); CHLORIDE LEVEL 107 MMOL/L (98-107); CHOLESTEROL LEVEL 167 MG/DL (<200); CHOLESTEROL RISK RATIO 2.26 (<5); FREE T4 0.96 NG/DL (0.89-1.76); GLOMERULAR FILTRATION RATE > 60.0 (>58); GLUCOSE, FASTING 81 MG/DL (60-100); HDL CHOLESTEROL 73.6 MG/DL (>40); LDL CHOLESTEROL 74.2 MG/DL (<100); NON-HDL-C 93.4 MG/DL; POTASSIUM SERUM 4.6 MMOL/L (3.5-5.1); SODIUM LEVEL 143 MMOL/L (136-145); THYROID STIMULATING HORMONE 1.617 uIU/ML (0.55-4.78); TOTAL 25(OH) VITAMIN D 29.8 NG/ML (20.0-100.0); TOTAL PROTEIN 6.8 G/DL (5.7-8.2); TRIGLYCERIDES LEVEL 96 MG/DL (<150)
== END ==
LOC: M PLAIMG 07:47
PROVIDERS: ATTEND Nurse Practitioner Adult Health
DX: M25.552 Pain in left hip (principal); M16.12 Unilateral primary osteoarthritis, left hip; E55.9 Vitamin D deficiency, unspecified; R03.0 Elevated blood-pressure reading, without diagnosis of hypertension; E66.9 Obesity, unspecified

== ENCOUNTER → 2023-08-16 | Outpatient (CLI) | payer OTHER ==
[~2023-08-16] MED LIST changes: -EFFE37.5 PO; +EFFE37.52 PO; +ISOVUE-300 61% 100ML VIAL As Ordered ONE; +LIDOCAINE 1% MDV 20ML VIAL As Ordered ONE; +methylPREDNISolone SUSP 40MG/ML 1ML VIAL (DEPO MEDROL) As Ordered ONE
== END ==
LOC: M RAD 14:59
PROVIDERS: ATTEND Physician Assistant
DX: M16.12 Unilateral primary osteoarthritis, left hip (principal)
CPT/HCPCS: 20610; 77002; J1030; Q9967

== ENCOUNTER → 2023-08-25 | Outpatient (REF) ==
[~2023-08-25] MED LIST changes: -ISOVUE-300 61% 100ML VIAL As Ordered ONE; -LIDOCAINE 1% MDV 20ML VIAL As Ordered ONE; -methylPREDNISolone SUSP 40MG/ML 1ML VIAL (DEPO MEDROL) As Ordered ONE
== END ==
LOC: M EMP 12:00
PROVIDERS: ATTEND Family Medicine
DX: Z11.52 Encounter for screening for COVID-19 (principal)

== ENCOUNTER → 2023-11-08 | Outpatient (REF) | payer BC ==
[2023-11-08 14:32] LABS: HEMATOCRIT 41.1 % (36.0-47.0); LYMPH # 1.8 10^3/uL (1.5-5.0); LYMPH % 32.7 % (24.0-44.0); MEAN CORPUSCULAR HEMOGLOBIN 27.1 pg (27.0-33.0); MEAN CORPUSCULAR HGB CONC 31.6 g/dl (32.0-36.5); MEAN CORPUSCULAR VOLUME 85.6 fl (80.0-96.0); MONO # 0.5 10^3/uL (0.0-0.8); MONO % 8.7 % (2.0-8.0); NEUTROPHILS # 3.2 10^3/uL (1.5-8.5); NEUTROPHILS % 58.4 % (36.0-66.0); PLATELET COUNT, AUTOMATED 179 10^3/uL (150-450); WHITE BLOOD COUNT 5.4 10^3/uL (4.0-10.0)
[2023-11-08 14:43] LABS: TOTAL 25(OH) VITAMIN D 32.4 NG/ML (20.0-100.0)
[2023-11-08 14:44] LABS: FREE T4 0.97 NG/DL (0.89-1.76)
[2023-11-08 14:47] LABS: ALBUMIN 3.9 G/DL (3.2-5.2); ALKALINE PHOSPHATASE 84 U/L (46-116); ALT/SGPT 22 U/L (7.0-40); AST/SGOT 14 U/L (<34); BILIRUBIN,TOTAL 0.4 MG/DL (0.3-1.2); BLOOD UREA NITROGEN 13 MG/DL (9-23); CALCIUM LEVEL 8.8 MG/DL (8.5-10.1); CARBON DIOXIDE LEVEL 32 MMOL/L (20-31); CHLORIDE LEVEL 112 MMOL/L (98-107); CHOLESTEROL LEVEL 184 MG/DL (<200); CHOLESTEROL RISK RATIO 2.76 (<5); CREATININE FOR GFR 0.89 MG/DL (0.55-1.30); GLOMERULAR FILTRATION RATE > 60.0 (>58); GLUCOSE, FASTING 81 MG/DL (60-100); HDL CHOLESTEROL 66.6 MG/DL (>40); LDL CHOLESTEROL 99.4 MG/DL (<100); NON-HDL-C 117.4 MG/DL; POTASSIUM SERUM 4.2 MMOL/L (3.5-5.1); SODIUM LEVEL 140 MMOL/L (136-145); TOTAL PROTEIN 6.6 G/DL (5.7-8.2); TRIGLYCERIDES LEVEL 90 MG/DL (<150)
== END ==
LOC: M LABDRWAD 12:26
PROVIDERS: ATTEND Nurse Practitioner Adult Health
DX: E55.9 Vitamin D deficiency, unspecified (principal); G93.2 Benign intracranial hypertension

== ENCOUNTER → 2023-11-24 | Outpatient (CLI) | payer OTHER ==
[~2023-11-24] MED LIST changes: +ISOVUE-300 61% 100ML VIAL As Ordered ONE; +LIDOCAINE 1% MDV 20ML VIAL As Ordered ONE; +methylPREDNISolone SUSP 40MG/ML 1ML VIAL (DEPO MEDROL) As Ordered ONE
== END ==
LOC: M RAD 15:24
PROVIDERS: ATTEND Physician Assistant
DX: M16.12 Unilateral primary osteoarthritis, left hip (principal)
CPT/HCPCS: 20610; 77002; J1030; Q9967

== ENCOUNTER → 2024-03-21 | Outpatient (CLI) | payer BC, OTHER ==
[~2024-03-21] MED LIST changes: +FLUO-290; -FLUO10CA18; -ISOVUE-300 61% 100ML VIAL As Ordered ONE; -LIDOCAINE 1% MDV 20ML VIAL As Ordered ONE; -methylPREDNISolone SUSP 40MG/ML 1ML VIAL (DEPO MEDROL) As Ordered ONE
== END ==
LOC: M WHC 09:00
PROVIDERS: ATTEND Advanced Practice Midwife
DX: Z12.31 Encounter for screening mammogram for malignant neoplasm of breast (principal)

== ENCOUNTER → 2024-05-15 | Outpatient (REF) | payer BC ==
[~2024-05-15] MED LIST changes: +GABA-1635; -GABA800T4
== END ==
LOC: M LAB REF 17:02
PROVIDERS: ATTEND Nurse Practitioner Adult Health
DX: R63.5 Abnormal weight gain (principal)

== ENCOUNTER 2024-08-31 15:50 | Emergency (ER) | payer OTHER, BC ==
[~2024-08-31] VITALS: Ht 149.9 cm; Wt 73.8 kg
[~2024-08-31 15:50] MED LIST changes: -ESOM40CA35; +ESOM40CA35 PO; -FLUO-290; +FLUO-290 PO; -FLUO1OPD; +FLUO1OPD OU
[2024-08-31] MEDS: KETOROLAC 30 MG/ML 1ML VIAL IM ONE (19:10)
[2024-08-31] MEDS: LIDOCAINE 5% (LIDODERM) PATCH TD ONE (19:10)
[2024-08-31] MEDS: methocarbamoL 500 MG TAB PO ONE (20:30)
[2024-08-31 20:57] VITALS: BP 190/86; TEMP 97.8; O2SAT 100
[2024-08-31] MEDS ORDERED: METH-1164 PO (21:05)
[2024-09-01] MEDS ORDERED: MEDR4PAK PO (23:44)
[2024-09-01] MEDS ORDERED: MELO15TA28 PO (23:44)
== END 2024-08-31 21:20 | disposition home or self-care (01) ==
LOC: M ED 15:50
DX: M25.552 Pain in left hip (principal); E04.0 Nontoxic diffuse goiter; K21.9 Gastro-esophageal reflux disease without esophagitis; Z79.1 Long term (current) use of non-steroidal anti-inflammatories (NSAID); Z79.899 Other long term (current) drug therapy
CPT/HCPCS: 96372; 99283; J1885

== ENCOUNTER 2024-09-01 19:42 | Emergency (ER) | payer OTHER, BC ==
[~2024-09-01] VITALS: Ht 149.9 cm; Wt 73.8 kg
[2024-09-01] MEDS: KETOROLAC 30 MG/ML 1ML VIAL IM ONE (21:10)
[2024-09-01] MEDS: CYCLOBENZAPRINE 5MG TABLET PO ONE (21:10)
[2024-09-01] MEDS: diazePAM 5MG TABLET PO ONE (21:11)
[2024-09-01] MEDS ORDERED: MELO15TA28 PO (23:44)
[2024-09-01] MEDS ORDERED: MEDR4PAK PO (23:44)
[2024-09-01 23:52] VITALS: BP 159/81; TEMP 97.5; O2SAT 95
== END 2024-09-01 23:50 | disposition home or self-care (01) ==
LOC: M ED 19:42
DX: M16.12 Unilateral primary osteoarthritis, left hip (principal); M47.896 Other spondylosis, lumbar region; F41.9 Anxiety disorder, unspecified; Z79.1 Long term (current) use of non-steroidal anti-inflammatories (NSAID); Z79.899 Other long term (current) drug therapy
CPT/HCPCS: 73502; 96372; 99284; J1885

== ENCOUNTER 2024-09-03 08:50 | Inpatient (IN) | payer OTHER, BC ==
[~2024-09-03] VITALS: Ht 149.9 cm; Wt 75.7 kg
[2024-09-03] VITALS (7 sets, daily range): BP systolic 158–180; BP diastolic 80–108; TEMP 98.1–102.7; O2SAT 97–98
[~2024-09-03 08:50] MED LIST changes: +MEDR4PAK PO; +MELO15TA28 PO
[2024-09-03] MEDS ORDERED: ACET650T61 PO (08:59)
[2024-09-03] MEDS: MORPHINE 4 MG/ML 1ML VIAL IV ONE (10:42)
[2024-09-03 10:58] LABS: BASO % 0.2 % (0.0-1.0); HEMATOCRIT 41.1 % (36.0-47.0); HEMOGLOBIN 13.3 g/dl (12.0-15.5); LYMPH # 0.5 10^3/uL (1.5-5.0); LYMPH % 2.6 % (24.0-44.0); MEAN CORPUSCULAR HEMOGLOBIN 27.3 pg (27.0-33.0); MEAN CORPUSCULAR HGB CONC 32.4 g/dl (32.0-36.5); MEAN CORPUSCULAR VOLUME 84.2 fl (80.0-96.0); MONO # 1.6 10^3/uL (0.0-0.8); MONO % 8.6 % (2.0-8.0); PLATELET COUNT, AUTOMATED 165 10^3/uL (150-450); RED BLOOD COUNT 4.88 10^6/uL (4.00-5.40); WHITE BLOOD COUNT 18.3 10^3/uL (4.0-10.0)
[2024-09-03 11:27] LABS: BLOOD UREA NITROGEN 16 MG/DL (9-23); CALCIUM LEVEL 9.8 MG/DL (8.5-10.1); CARBON DIOXIDE LEVEL 22 MMOL/L (20-31); CHLORIDE LEVEL 107 MMOL/L (98-107); CREATININE FOR GFR 0.79 MG/DL (0.55-1.30); GLOMERULAR FILTRATION RATE > 60.0 (>58); GLUCOSE, FASTING 132 MG/DL (60-100); POTASSIUM SERUM 3.7 MMOL/L (3.5-5.1); SODIUM LEVEL 141 MMOL/L (136-145)
[2024-09-03] MEDS: KETOROLAC 30 MG/ML 1ML VIAL IV ONE (11:31)
[2024-09-03 11:50] LABS: PROCALCITONIN 0.83 ng/ml
[2024-09-03 11:55] LABS: C REACTIVE PROTEIN QUANTITATIV 25.71 MG/DL (<1.0)
[2024-09-03 12:10] LABS: ERYTHROCYTE SEDIMENTATION RATE 71 mm/hr (0-20)
[2024-09-03 12:21] LABS: KETONE, URINE AUTO RFX TRACE mg/dL (NEGATIVE); MUCUS, URINE RFX SMALL (NEGATIVE); NITRITE, URINE AUTO RFX NEGATIVE (NEGATIVE); RBC, URINE AUTO RFX 1 /HPF (0-3); SQUAM EPITHELIAL CELL UR AURFX 8 /HPF (0-6); WBC, URINE AUTO RFX 3 /HPF (0-3)
[2024-09-03 12:22] LABS: LEUKOCYTE ESTERASE UR AUTO RFX TRACE (NEGATIVE)
[2024-09-03] MEDS: HYDROMORPHONE HCL 0.5 MG/ 0.5 ML SYRINGE IV ONE (12:38)
[2024-09-03] MEDS ORDERED: PERCOCET 5MG/325MG TAB PO PRN (13:35)
[2024-09-03] MEDS ORDERED: GABA-1172 PO (14:53)
[2024-09-03] MEDS ORDERED: MELO15TA28 PO (14:56)
[2024-09-03] MEDS ORDERED: MAGN500T12 PO (14:59)
[2024-09-03] MEDS ORDERED: SODI2OPD OU (15:00)
[2024-09-03] MEDS ORDERED: REST0.05 OU (15:09)
[2024-09-03] MEDS ORDERED: METH-1164 PO (15:11)
[2024-09-03] MEDS ORDERED: HOME MED LIST COMPLETE! XX SCH (15:15)
[2024-09-03] MEDS: PERCOCET 5MG/325MG TAB PO PRN (15:50)
[2024-09-03] MEDS: methocarbamoL 500 MG TAB PO SCH (16:31)
[2024-09-03] MEDS: GABAPENTIN 300 MG CAP PO SCH (16:31)
[2024-09-03] MEDS: predniSONE 20 MG TAB PO SCH (16:31)
[2024-09-03] MEDS: KETOROLAC 30 MG/ML 1ML VIAL IV PRN (16:41)
[2024-09-03] MEDS: ACETAMINOPHEN 325 MG TAB PO PRN (20:11)
[2024-09-03] MEDS: FLUOROMETHOLONE 0.1% OPHTH SUSP 5ML BTL OU SCH (20:30)
[2024-09-03 20:46] LABS: ALBUMIN 3.4 G/DL (3.2-5.2); BILIRUBIN,DIRECT 0.3 MG/DL (<0.4); BILIRUBIN,TOTAL 0.7 MG/DL (0.3-1.2); MAGNESIUM LEVEL 1.4 MG/DL (1.8-2.4); TOTAL PROTEIN 6.6 G/DL (5.7-8.2)
[2024-09-03] MEDS: MAG SULF 1GM/100ML (MAG RUN) 1 GM in IV 1 EA IV SCH (22:59)
[2024-09-04] VITALS (26 sets, daily range): BP systolic 93–172; BP diastolic 52–89; TEMP 99.5–105.9; O2SAT 88–99
[2024-09-04] MEDS: HYDROMORPHONE HCL 0.5 MG/ 0.5 ML SYRINGE IV PRN (04:35)
[2024-09-04 06:03] LABS: HEMATOCRIT 43.2 % (36.0-47.0); HEMOGLOBIN 13.4 g/dl (12.0-15.5); MEAN CORPUSCULAR HEMOGLOBIN 26.5 pg (27.0-33.0); MEAN CORPUSCULAR VOLUME 85.4 fl (80.0-96.0); PLATELET COUNT, AUTOMATED 170 10^3/uL (150-450); RED BLOOD COUNT 5.06 10^6/uL (4.00-5.40); WHITE BLOOD COUNT 9.5 10^3/uL (4.0-10.0)
[2024-09-04 06:29] LABS: ERYTHROCYTE SEDIMENTATION RATE 121 mm/hr (0-20)
[2024-09-04 06:36] LABS: BLOOD UREA NITROGEN 17 MG/DL (9-23); C REACTIVE PROTEIN QUANTITATIV 44.55 MG/DL (<1.0); CARBON DIOXIDE LEVEL 20 MMOL/L (20-31); CHLORIDE LEVEL 102 MMOL/L (98-107); CREATININE FOR GFR 0.93 MG/DL (0.55-1.30); GLOMERULAR FILTRATION RATE > 60.0 (>58); GLUCOSE, FASTING 115 MG/DL (60-100); POTASSIUM SERUM 4.5 MMOL/L (3.5-5.1); SODIUM LEVEL 139 MMOL/L (136-145)
[2024-09-04] MEDS: ACETAMINOPHEN *IV* 1,000 MG in IV 1 EA IV ONE (06:47)
[2024-09-04] MEDS ORDERED: VANCOMYCIN/WATER FOR INJ 1,000 MG in IV 1 EA IV SCH (07:05)
[2024-09-04] MEDS: LR 1,000 ML IV ONE (07:22)
[2024-09-04] MEDS: PIPERACILLIN/TAZOBACTAM SOD 4.5 GM in DEXTROSE 5% (D5W) ADV/MINI-BAG 50 ML IV SCH (07:54)
[2024-09-04] MEDS: PANTOPRAZOLE 40MG TAB (PROTONIX) PO SCH (08:39)
[2024-09-04] MEDS: VANCOMYCIN HCL 1,500 MG, VIAL MATE ADAPTER 1 EACH in NS 500 ML IV ONE (08:39)
[2024-09-04] MEDS: MAGNESIUM OXIDE 400MG TAB (MAG-OX) PO SCH (08:40)
[2024-09-04] MEDS: NS (Normal Saline) 0.9% 1,000 ML IV SCH (08:57)
[2024-09-04] MEDS ORDERED: ENOXAPARIN 40MG/0.4ML SYRINGE (J1650 PER 10MG) SC SCH (09:00)
[2024-09-04 09:16] LABS: MAGNESIUM LEVEL 2.6 MG/DL (1.8-2.4)
[2024-09-04 09:25] LABS: PROCALCITONIN 5.54 ng/ml
[2024-09-04] MEDS: FLUoxetine 10 MG CAP PO SCH (09:51)
[2024-09-04 11:59] LABS: INR 1.22; PROTHROMBIN TIME 15.7 SECONDS (12.5-14.5)
[2024-09-04] MEDS ORDERED: MIDAZOLAM INJ 2MG/2ML VIAL As Ordered ONE (13:31)
[2024-09-04] MEDS ORDERED: fentaNYL 100 MCG/2 ML INJECTION As Ordered ONE (13:31)
[2024-09-04] MEDS ORDERED: LIDOCAINE 2% 100MG/5ML SDV (FOR ANES.) As Ordered ONE (13:32)
[2024-09-04] MEDS ORDERED: propofoL 200 MG/20 ML VIAL As Ordered ONE (13:34)
[2024-09-04] MEDS: ISOVUE-300 61% 100ML VIAL As Ordered ONE (14:50)
[2024-09-04] MEDS ORDERED: ACETAMINOPHEN 1000MG/100ML IV BAG As Ordered ONE (14:50)
[2024-09-04] MEDS: LEVALBUTEROL 1.25MG 0.5ML CONCENTRATE NEB NEB ONE (15:23)
[2024-09-04 15:59] LABS: CRYSTALS, BODY FLUID NONE SEEN (NONE SEEN); SOURCE, BODY FLUID CRYSTALS LEFT HIP
[2024-09-04] MEDS: NS (Normal Saline) 0.9% 1,000 ML IV ONE (18:58)
[2024-09-04] MEDS: cefTRIAXone SOD 2 GM in DEXTROSE 5% (D5W) ADV/MINI-BAG 50 ML IV SCH (20:45)
[2024-09-04] MEDS: VANCOMYCIN 1,000MG/200 ML IV BAG IV SCH (21:51)
[2024-09-05] VITALS (34 sets, daily range): BP systolic 102–184; BP diastolic 58–84; TEMP 99.1–102.2; O2SAT 20–98
[2024-09-05] MEDS: METOPROLOL 5 MG/5 ML VIAL IV STA (02:13)
[2024-09-05] MEDS: ACETAMINOPHEN *IV* 1,000 MG in IV 1 EA IV ONE (02:25)
[2024-09-05] MEDS: BUDESONIDE 0.25 MG/2 ML INHALATION SUSPENSION INH ONE (02:33)
[2024-09-05 07:57] LABS: MEAN CORPUSCULAR HEMOGLOBIN 27.1 pg (27.0-33.0); MEAN CORPUSCULAR VOLUME 84.5 fl (80.0-96.0); RED BLOOD COUNT 4.14 10^6/uL (4.00-5.40); WHITE BLOOD COUNT 14.4 10^3/uL (4.0-10.0)
[2024-09-05 07:58] LABS: HEMOGLOBIN 11.2 g/dl (12.0-15.5); PLATELET COUNT, AUTOMATED 73 10^3/uL (150-450)
[2024-09-05 08:07] LABS: ATYPICAL LYMPH 3 % (0-5); LYMPHOCYTES 3 % (16-44); MONOCYTES 12 % (0-5); NEUTROPHILS 79 % (28-66); PLATELET ESTIMATE DECREASED (NORMAL)
[2024-09-05 08:08] LABS: ANISOCYTOSIS 1+; POIKILOCYTOSIS 1+
[2024-09-05 08:20] LABS: VANCOMYCIN LEVEL TROUGH 21.5 UG/ML (10.0-20.0)
[2024-09-05 08:33] LABS: C REACTIVE PROTEIN QUANTITATIV 37.18 MG/DL (<1.0); CREATININE FOR GFR 1.32 MG/DL (0.55-1.30); GLOMERULAR FILTRATION RATE 45.9 (>58); POTASSIUM SERUM 3.9 MMOL/L (3.5-5.1)
[2024-09-05] MEDS: CLINDAMYCIN 900 MG in IV 1 EA IV SCH (10:38)
[2024-09-05] MEDS ORDERED: VANCOMYCIN HCL 500 MG in DEXTROSE 5% (D5W) MINI-BAG PLU 100 ML IV SCH (15:00)
[2024-09-05] MEDS: ACETAMINOPHEN *IV* 500 MG in IV 1 EA IV ONE (16:38)
[2024-09-05] MEDS: LABETALOL 100MG/20ML VIAL IV PRN (16:39)
[2024-09-05] MEDS ORDERED: ISOVUE-370 76% 100ML VIAL As Ordered ONE (17:11)
[2024-09-05] MEDS: MEROPENEM INJ 1 GM in IV 1 EA IV SCH (20:11)
[2024-09-06] VITALS (42 sets, daily range): BP systolic 94–153; BP diastolic 50–73; TEMP 98.4–101.1; O2SAT 72–100
[2024-09-06 06:43] LABS: BASO % 0.3 % (0.0-1.0); HEMATOCRIT 35.2 % (36.0-47.0); HEMOGLOBIN 11.3 g/dl (12.0-15.5); LYMPH # 0.3 10^3/uL (1.5-5.0); LYMPH % 2.5 % (24.0-44.0); MEAN CORPUSCULAR HEMOGLOBIN 26.8 pg (27.0-33.0); MEAN CORPUSCULAR HGB CONC 32.1 g/dl (32.0-36.5); MEAN CORPUSCULAR VOLUME 83.4 fl (80.0-96.0); MONO # 0.9 10^3/uL (0.0-0.8); MONO % 7.2 % (2.0-8.0); NEUTROPHILS # 10.5 10^3/uL (1.5-8.5); NEUTROPHILS % 89.3 % (36.0-66.0); RED BLOOD COUNT 4.22 10^6/uL (4.00-5.40); WHITE BLOOD COUNT 11.8 10^3/uL (4.0-10.0)
[2024-09-06 06:53] LABS: PLATELET COUNT, AUTOMATED 71 10^3/uL (150-450)
[2024-09-06 07:07] LABS: BLOOD UREA NITROGEN 25 MG/DL (9-23); CALCIUM LEVEL 8.2 MG/DL (8.5-10.1); CARBON DIOXIDE LEVEL 19 MMOL/L (20-31); CHLORIDE LEVEL 109 MMOL/L (98-107); CREATININE FOR GFR 0.92 MG/DL (0.55-1.30); GLOMERULAR FILTRATION RATE > 60.0 (>58); GLUCOSE, FASTING 96 MG/DL (60-100); POTASSIUM SERUM 3.2 MMOL/L (3.5-5.1); SODIUM LEVEL 141 MMOL/L (136-145)
[2024-09-06 07:22] LABS: C REACTIVE PROTEIN QUANTITATIV 31.22 MG/DL (<1.0)
[2024-09-06] MEDS ORDERED: NALOXONE INJ 0.4MG/1ML VIAL IV PRN (08:05)
[2024-09-06 08:09] LABS: ERYTHROCYTE SEDIMENTATION RATE 111 mm/hr (0-20)
[2024-09-06 08:35] LABS: PROCALCITONIN >50.00 ng/ml
[2024-09-06] MEDS: POTASSIUM CHLORIDE 10MEQ SR TABLET PO ONE (09:26)
[2024-09-06] MEDS: oxyCODONE 10 MG CR TAB PO ONE (09:30)
[2024-09-06] MEDS: oxyCODONE 5MG TAB PO SCH (11:56)
[2024-09-06] MEDS: ceFAZolin 2 GM/D5W 50 ML IV BAG As Ordered ONE (14:35)
[2024-09-06] MEDS: LIDOCAINE W/EPINEPHRINE 1% 20ML VIAL As Ordered ONE (14:58)
[2024-09-06] MEDS: TRANEXAMIC ACID 100 MG/ML 10ML VIAL As Ordered ONE (15:00)
[2024-09-06] MEDS ORDERED: LABETALOL 100MG/20ML VIAL As Ordered ONE (15:07)
[2024-09-06] MEDS ORDERED: ONDANSETRON 4MG 2ML VIAL As Ordered ONE (15:07)
[2024-09-06] MEDS ORDERED: ETOMIDATE INJ 20MG/10ML VIAL As Ordered ONE (15:07)
[2024-09-06] MEDS ORDERED: dexmedeTOMIDine (4MCG/ML)200MCG/50ML BTL (PRECEDEX) As Ordered ONE (15:07)
[2024-09-06] MEDS ORDERED: METOCLOPRAMIDE INJ 10MG/2ML VIAL As Ordered ONE (15:07)
[2024-09-06] MEDS ORDERED: ROCURONIUM BROMIDE 50MG/5ML VIAL As Ordered ONE (15:07)
[2024-09-06] MEDS ORDERED: ESMOLOL INJ 100MG/10ML VIAL As Ordered ONE (15:07)
[2024-09-06] MEDS ORDERED: PHENYLephrine 500MCG 5ML (100MCG/ML) SYRINGE As Ordered ONE (15:35)
[2024-09-06] MEDS ORDERED: PROPOFOL 1,000 MG/100 ML VIAL As Ordered ONE (16:17)
[2024-09-06 16:44] LABS: ABG BASE EXCESS -8.1 (-2.0-2.0); ABG HCO3 17.1 MMOL/L (22.0-26.0); ABG O2 SATURATION 94.8 % (95.0-99.0); ABG PARTIAL PRESSURE CO2 33.7 mmHg (35.0-45.0); ABG PARTIAL PRESSURE O2 78.8 mmHg (75.0-100.0); ABG STANDARD HCO3 17.9 MMOL/L. (22.0-26.0); ABG TOTAL CO2 18.1 MMOL/L (22.0-29.0); ABG pH (ARTERIAL) 7.322 UNITS (7.350-7.450)
[2024-09-06] MEDS ORDERED: ALBUTEROL SULFATE 2.5MG/0.5ML INH NEB SOLN NEB PRN (17:20)
[2024-09-06] MEDS: fentaNYL 100 MCG/2 ML INJECTION IV PRN (17:24)
[2024-09-06 17:58] LABS: BLOOD UREA NITROGEN 23 MG/DL (9-23); CALCIUM LEVEL 8.2 MG/DL (8.5-10.1); CARBON DIOXIDE LEVEL 19 MMOL/L (20-31); CHLORIDE LEVEL 111 MMOL/L (98-107); CREATININE FOR GFR 0.81 MG/DL (0.55-1.30); GLOMERULAR FILTRATION RATE > 60.0 (>58); GLUCOSE, FASTING 109 MG/DL (60-100); MAGNESIUM LEVEL 2.4 MG/DL (1.8-2.4); POTASSIUM SERUM 3.7 MMOL/L (3.5-5.1); SODIUM LEVEL 141 MMOL/L (136-145)
[2024-09-06] MEDS: MIDAZOLAM INJ 2MG/2ML VIAL IV PRN (20:53)
[2024-09-06] MEDS: propofoL 1,000 MG in IV 1 EA IV SCH (22:59)
[2024-09-07] VITALS (33 sets, daily range): BP systolic 97–217; BP diastolic 55–97; TEMP 98.1–103.3; O2SAT 89–100
[2024-09-07 04:25] LABS: ABG BASE EXCESS -4.2 (-2.0-2.0); ABG HCO3 20.6 MMOL/L (22.0-26.0); ABG O2 SATURATION 99.5 % (95.0-99.0); ABG PARTIAL PRESSURE CO2 36.8 mmHg (35.0-45.0); ABG PARTIAL PRESSURE O2 160.7 mmHg (75.0-100.0); ABG TOTAL CO2 21.7 MMOL/L (22.0-29.0); ABG pH (ARTERIAL) 7.366 UNITS (7.350-7.450)
[2024-09-07 04:26] LABS: HEMATOCRIT 32.2 % (36.0-47.0); HEMOGLOBIN 10.3 g/dl (12.0-15.5); MEAN CORPUSCULAR HEMOGLOBIN 26.3 pg (27.0-33.0); MEAN CORPUSCULAR VOLUME 82.4 fl (80.0-96.0); RED BLOOD COUNT 3.91 10^6/uL (4.00-5.40); WHITE BLOOD COUNT 11.6 10^3/uL (4.0-10.0)
[2024-09-07 04:28] LABS: PLATELET COUNT, AUTOMATED 77 10^3/uL (150-450)
[2024-09-07 04:49] LABS: ALKALINE PHOSPHATASE 156 U/L (35-104); ALT/SGPT 27 U/L (7.0-40); AST/SGOT 22 U/L (<34); BILIRUBIN,TOTAL 0.4 MG/DL (0.3-1.2); BLOOD UREA NITROGEN 24 MG/DL (9-23); CALCIUM LEVEL 7.9 MG/DL (8.5-10.1); CARBON DIOXIDE LEVEL 21 MMOL/L (20-31); CHLORIDE LEVEL 114 MMOL/L (98-107); CREATININE FOR GFR 0.77 MG/DL (0.55-1.30); GLOMERULAR FILTRATION RATE > 60.0 (>58); GLUCOSE, FASTING 132 MG/DL (60-100); POTASSIUM SERUM 3.8 MMOL/L (3.5-5.1); SODIUM LEVEL 144 MMOL/L (136-145); TOTAL PROTEIN 4.8 G/DL (5.7-8.2)
[2024-09-07 08:33] LABS: ABG BASE EXCESS -3.3 (-2.0-2.0); ABG HCO3 20.5 MMOL/L (22.0-26.0); ABG O2 SATURATION 99.2 % (95.0-99.0); ABG PARTIAL PRESSURE CO2 32.7 mmHg (35.0-45.0); ABG PARTIAL PRESSURE O2 172.7 mmHg (75.0-100.0); ABG STANDARD HCO3 21.8 MMOL/L. (22.0-26.0); ABG TOTAL CO2 21.5 MMOL/L (22.0-29.0); ABG pH (ARTERIAL) 7.415 UNITS (7.350-7.450)
[2024-09-07] MEDS: SODIUM CHLORIDE 0.9% NASAL GEL 15GM (AYR) SCH (13:00)
[2024-09-07] MEDS ORDERED: PERCOCET 5MG/325MG TAB PO PRN (14:10)
[2024-09-07] MEDS ORDERED: SODIUM CHLORIDE 0.65% NOSE DROPS 30ML BTL (BABY AYR) PRN (14:10)
[2024-09-07] MEDS: OXYMETAZOLINE 0.05% NASAL SPRAY (AFRIN) ONE (14:10)
[2024-09-07] MEDS: PERCOCET 5MG/325MG TAB PO ONE (14:16)
[2024-09-07] MEDS: HYDROMORPHONE HCL 0.5 MG/ 0.5 ML SYRINGE IV PRN (19:06)
[2024-09-07] MEDS: OXYMETAZOLINE 0.05% NASAL SPRAY (AFRIN) SCH (21:24)
[2024-09-07] MEDS: cefTRIAXone SOD 2 GM in DEXTROSE 5% (D5W) ADV/MINI-BAG 50 ML IV SCH (21:27)
[2024-09-08] VITALS (24 sets, daily range): BP systolic 123–154; BP diastolic 68–86; TEMP 97.4–101.1; O2SAT 86–100
[2024-09-08] MEDS: IBUPROFEN 600MG TAB PO PRN (00:29)
[2024-09-08 06:25] LABS: HEMATOCRIT 33.6 % (36.0-47.0); HEMOGLOBIN 10.9 g/dl (12.0-15.5); MEAN CORPUSCULAR HEMOGLOBIN 26.8 pg (27.0-33.0); MEAN CORPUSCULAR HGB CONC 32.4 g/dl (32.0-36.5); MEAN CORPUSCULAR VOLUME 82.6 fl (80.0-96.0); RED BLOOD COUNT 4.07 10^6/uL (4.00-5.40); WHITE BLOOD COUNT 11.2 10^3/uL (4.0-10.0)
[2024-09-08 06:30] LABS: PLATELET COUNT, AUTOMATED 87 10^3/uL (150-450)
[2024-09-08 06:56] LABS: BLOOD UREA NITROGEN 19 MG/DL (9-23); C REACTIVE PROTEIN QUANTITATIV 22.92 MG/DL (<1.0); CALCIUM LEVEL 8.1 MG/DL (8.5-10.1); CARBON DIOXIDE LEVEL 25 MMOL/L (20-31); CHLORIDE LEVEL 110 MMOL/L (98-107); GLOMERULAR FILTRATION RATE > 60.0 (>58); GLUCOSE, FASTING 97 MG/DL (60-100); POTASSIUM SERUM 3.4 MMOL/L (3.5-5.1); SODIUM LEVEL 145 MMOL/L (136-145)
[2024-09-08 07:03] LABS: PROCALCITONIN 30.33 ng/ml
[2024-09-08] MEDS: PERCOCET 5MG/325MG TAB PO PRN (08:57)
[2024-09-08] MEDS: MEROPENEM INJ 1 GM in IV 1 EA IV SCH (08:57)
[2024-09-08] MEDS: CLINDAMYCIN 900 MG in IV 1 EA IV SCH (10:11)
[2024-09-08] MEDS: ACETAMINOPHEN 500 MG TAB PO SCH (11:17)
[2024-09-08] MEDS ORDERED: ONDANSETRON 4MG 2ML VIAL IV ONE (12:00)
[2024-09-08] MEDS: POTASSIUM CHLORIDE 10MEQ SR TABLET PO ONE (18:58)
[2024-09-09] VITALS (17 sets, daily range): BP systolic 136–165; BP diastolic 62–85; TEMP 97.6–102.3; O2SAT 92–98
[2024-09-09] MEDS ORDERED: NALOXONE INJ 0.4MG/1ML VIAL IV PRN (07:40)
[2024-09-09 07:52] LABS: HEMATOCRIT 36.7 % (36.0-47.0); HEMOGLOBIN 11.5 g/dl (12.0-15.5); MEAN CORPUSCULAR HEMOGLOBIN 25.8 pg (27.0-33.0); MEAN CORPUSCULAR HGB CONC 31.3 g/dl (32.0-36.5); MEAN CORPUSCULAR VOLUME 82.5 fl (80.0-96.0); PLATELET COUNT, AUTOMATED 110 10^3/uL (150-450); RED BLOOD COUNT 4.45 10^6/uL (4.00-5.40); WHITE BLOOD COUNT 16.1 10^3/uL (4.0-10.0)
[2024-09-09] MEDS: CYCLOBENZAPRINE 5MG TABLET PO SCH (08:05)
[2024-09-09] MEDS: oxyCODONE 10 MG CR TAB PO ONE (08:10)
[2024-09-09 08:18] LABS: BLOOD UREA NITROGEN 20 MG/DL (9-23); CALCIUM LEVEL 8.6 MG/DL (8.5-10.1); CARBON DIOXIDE LEVEL 26 MMOL/L (20-31); CHLORIDE LEVEL 110 MMOL/L (98-107); CREATININE FOR GFR 0.62 MG/DL (0.55-1.30); GLOMERULAR FILTRATION RATE > 60.0 (>58); GLUCOSE, FASTING 91 MG/DL (60-100); POTASSIUM SERUM 3.4 MMOL/L (3.5-5.1); SODIUM LEVEL 147 MMOL/L (136-145)
[2024-09-09 08:29] LABS: PROCALCITONIN 16.25 ng/ml
[2024-09-09 09:01] LABS: ERYTHROCYTE SEDIMENTATION RATE 129 mm/hr (0-20)
[2024-09-09 09:14] LABS: C REACTIVE PROTEIN QUANTITATIV 29.33 MG/DL (<1.0)
[2024-09-09 09:17] LABS: LYMPHOCYTES 9 % (16-44); MONOCYTES 3 % (0-5); NEUTROPHILS 82 % (28-66)
[2024-09-09 09:19] LABS: ANISOCYTOSIS 1+; PLATELET ESTIMATE DECREASED (NORMAL)
[2024-09-09 09:20] LABS: HYPOCHROMASIA 1+
[2024-09-09] MEDS: oxyCODONE 5MG TAB PO ONE ×3 (10:45→17:08)
[2024-09-09] MEDS: LACTOBACILLUS ACIDOPHILUS CAP (BACID) PO SCH (13:06)
[2024-09-10] VITALS (7 sets, daily range): BP systolic 116–146; BP diastolic 60–82; TEMP 97.1–99.1; O2SAT 93–98
[2024-09-10 13:45] LABS: BASO % 0.1 % (0.0-1.0); HEMATOCRIT 32.9 % (36.0-47.0); HEMOGLOBIN 10.8 g/dl (12.0-15.5); LYMPH # 1.3 10^3/uL (1.5-5.0); LYMPH % 8.7 % (24.0-44.0); MEAN CORPUSCULAR HEMOGLOBIN 26.6 pg (27.0-33.0); MEAN CORPUSCULAR HGB CONC 32.8 g/dl (32.0-36.5); MONO # 0.9 10^3/uL (0.0-0.8); NEUTROPHILS # 12.7 10^3/uL (1.5-8.5); NEUTROPHILS % 83.1 % (36.0-66.0); PLATELET COUNT, AUTOMATED 167 10^3/uL (150-450); RED BLOOD COUNT 4.06 10^6/uL (4.00-5.40); WHITE BLOOD COUNT 15.2 10^3/uL (4.0-10.0)
[2024-09-10 13:49] LABS: ERYTHROCYTE SEDIMENTATION RATE 116 mm/hr (0-20)
[2024-09-10 14:22] LABS: BLOOD UREA NITROGEN 13 MG/DL (9-23); CALCIUM LEVEL 8.3 MG/DL (8.5-10.1); CARBON DIOXIDE LEVEL 24 MMOL/L (20-31); CHLORIDE LEVEL 105 MMOL/L (98-107); CREATININE FOR GFR 0.57 MG/DL (0.55-1.30); GLOMERULAR FILTRATION RATE > 60.0 (>58); GLUCOSE, FASTING 90 MG/DL (60-100); POTASSIUM SERUM 3.2 MMOL/L (3.5-5.1); SODIUM LEVEL 142 MMOL/L (136-145)
[2024-09-10 14:34] LABS: C REACTIVE PROTEIN QUANTITATIV 26.12 MG/DL (<1.0)
[2024-09-10 16:52] LABS: MYCOPLASMA PNEUMONIAE IGG 0.94 (<=0.90)
[2024-09-11] VITALS (9 sets, daily range): BP systolic 116–178; BP diastolic 56–94; TEMP 97.1–101.9; O2SAT 93–100
[2024-09-11 06:44] LABS: BASO % 0.2 % (0.0-1.0); HEMATOCRIT 31.3 % (36.0-47.0); HEMOGLOBIN 10.1 g/dl (12.0-15.5); LYMPH # 1.5 10^3/uL (1.5-5.0); LYMPH % 12.5 % (24.0-44.0); MEAN CORPUSCULAR HEMOGLOBIN 25.9 pg (27.0-33.0); MEAN CORPUSCULAR HGB CONC 32.3 g/dl (32.0-36.5); MEAN CORPUSCULAR VOLUME 80.3 fl (80.0-96.0); MONO # 0.8 10^3/uL (0.0-0.8); MONO % 6.4 % (2.0-8.0); NEUTROPHILS # 9.7 10^3/uL (1.5-8.5); NEUTROPHILS % 78.9 % (36.0-66.0); PLATELET COUNT, AUTOMATED 192 10^3/uL (150-450); WHITE BLOOD COUNT 12.2 10^3/uL (4.0-10.0)
[2024-09-11 07:10] LABS: BLOOD UREA NITROGEN 12 MG/DL (9-23); CARBON DIOXIDE LEVEL 28 MMOL/L (20-31); CHLORIDE LEVEL 107 MMOL/L (98-107); CREATININE FOR GFR 0.65 MG/DL (0.55-1.30); GLOMERULAR FILTRATION RATE > 60.0 (>58); GLUCOSE, FASTING 93 MG/DL (60-100); POTASSIUM SERUM 3.4 MMOL/L (3.5-5.1); SODIUM LEVEL 144 MMOL/L (136-145)
[2024-09-11 09:56] LABS: C REACTIVE PROTEIN QUANTITATIV 26.49 MG/DL (<1.0)
[2024-09-11] MEDS: cefTRIAXone SOD 2 GM in DEXTROSE 5% (D5W) ADV/MINI-BAG 50 ML IV SCH (17:30)
[2024-09-12 04:12] VITALS: BP 126/67; TEMP 97.6; O2SAT 95
[2024-09-12 07:42] LABS: BASO % 0.2 % (0.0-1.0); HEMATOCRIT 29.8 % (36.0-47.0); HEMOGLOBIN 9.7 g/dl (12.0-15.5); LYMPH % 9.4 % (24.0-44.0); MEAN CORPUSCULAR HEMOGLOBIN 26.5 pg (27.0-33.0); MEAN CORPUSCULAR HGB CONC 32.6 g/dl (32.0-36.5); MEAN CORPUSCULAR VOLUME 81.4 fl (80.0-96.0); MONO # 0.8 10^3/uL (0.0-0.8); MONO % 7.1 % (2.0-8.0); NEUTROPHILS # 8.8 10^3/uL (1.5-8.5); NEUTROPHILS % 82.4 % (36.0-66.0); PLATELET COUNT, AUTOMATED 248 10^3/uL (150-450); RED BLOOD COUNT 3.66 10^6/uL (4.00-5.40); WHITE BLOOD COUNT 10.6 10^3/uL (4.0-10.0)
[2024-09-12 08:14] LABS: BLOOD UREA NITROGEN 10 MG/DL (9-23); CALCIUM LEVEL 7.9 MG/DL (8.5-10.1); CARBON DIOXIDE LEVEL 28 MMOL/L (20-31); CHLORIDE LEVEL 106 MMOL/L (98-107); CREATININE FOR GFR 0.57 MG/DL (0.55-1.30); GLOMERULAR FILTRATION RATE > 60.0 (>58); GLUCOSE, FASTING 83 MG/DL (60-100); POTASSIUM SERUM 3.1 MMOL/L (3.5-5.1); SODIUM LEVEL 143 MMOL/L (136-145)
[2024-09-12 08:27] LABS: MAGNESIUM LEVEL 1.7 MG/DL (1.8-2.4)
[2024-09-12 08:36] LABS: PROCALCITONIN 2.52 ng/ml
[2024-09-12 08:45] LABS: C REACTIVE PROTEIN QUANTITATIV 23.32 MG/DL (<1.0)
[2024-09-12] MEDS: POTASSIUM CHLORIDE 10MEQ SR TABLET PO ONE (11:27)
[2024-09-12 12:12] VITALS: BP 140/78; TEMP 98.1; O2SAT 95
[2024-09-12 20:24] VITALS: BP 155/72; TEMP 97.6; O2SAT 95
[2024-09-13 04:31] VITALS: BP 141/63; TEMP 97.8; O2SAT 95
[2024-09-13 07:23] LABS: BASO % 0.2 % (0.0-1.0); HEMATOCRIT 31.9 % (36.0-47.0); HEMOGLOBIN 9.9 g/dl (12.0-15.5); LYMPH # 1.4 10^3/uL (1.5-5.0); LYMPH % 14.2 % (24.0-44.0); MEAN CORPUSCULAR HEMOGLOBIN 25.8 pg (27.0-33.0); MEAN CORPUSCULAR VOLUME 83.1 fl (80.0-96.0); MONO # 0.8 10^3/uL (0.0-0.8); MONO % 8.2 % (2.0-8.0); NEUTROPHILS # 7.6 10^3/uL (1.5-8.5); NEUTROPHILS % 76.1 % (36.0-66.0); PLATELET COUNT, AUTOMATED 305 10^3/uL (150-450); RED BLOOD COUNT 3.84 10^6/uL (4.00-5.40)
[2024-09-13 07:47] LABS: BLOOD UREA NITROGEN 9 MG/DL (9-23); C REACTIVE PROTEIN QUANTITATIV 24.48 MG/DL (<1.0); CALCIUM LEVEL 8.5 MG/DL (8.5-10.1); CARBON DIOXIDE LEVEL 27 MMOL/L (20-31); CHLORIDE LEVEL 107 MMOL/L (98-107); CREATININE FOR GFR 0.58 MG/DL (0.55-1.30); GLOMERULAR FILTRATION RATE > 60.0 (>58); GLUCOSE, FASTING 79 MG/DL (60-100); POTASSIUM SERUM 3.7 MMOL/L (3.5-5.1); SODIUM LEVEL 144 MMOL/L (136-145)
[2024-09-13 08:00] VITALS: BP 145/68; TEMP 98.6; O2SAT 100
[2024-09-13] MEDS: oxyCODONE 5MG TAB PO PRN (10:14)
[2024-09-13 12:20] VITALS: BP 155/71; TEMP 98.9; O2SAT 99
[2024-09-13 17:06] LABS: HEP INDUCED PLT AB PATIENT OD 0.136 OD UNITS (<=0.300); HEPARIN INDUCED PLATELET ABY Negative (Negative)
[2024-09-13 17:40] VITALS: BP 179/84; TEMP 102; O2SAT 100
[2024-09-13] MEDS: NS (Normal Saline) 0.9% 1,000 ML IV ONE (19:03)
[2024-09-13] MEDS: KETOROLAC 30 MG/ML 1ML VIAL IV ONE (19:04)
[2024-09-13] MEDS: METOPROLOL TART 12.5 MG PER 1/2 TAB PO SCH (19:07)
[2024-09-13 20:01] VITALS: BP 132/68; TEMP 101.8; O2SAT 100
[2024-09-13 20:15] LABS: C REACTIVE PROTEIN QUANTITATIV 23.12 MG/DL (<1.0)
[2024-09-13 20:22] LABS: PROCALCITONIN 1.29 ng/ml
[2024-09-13] MEDS ORDERED: VANCOMYCIN HCL 1,500 MG in IV FLUID PLACE HOLDER 1 EA IV ONE (22:55)
[2024-09-13] MEDS ORDERED: VANCOMYCIN HCL 1,000 MG, VIAL MATE ADAPTER 1 EACH in NS 250 ML IV SCH (22:55)
[2024-09-13 23:25] VITALS: BP 140/89; TEMP 98.7; O2SAT 99
[2024-09-13] MEDS: VANCOMYCIN HCL 1,500 MG, VIAL MATE ADAPTER 1 EACH in NS 500 ML IV ONE (23:33)
[2024-09-13 23:44] LABS: KETONE, URINE AUTO RFX NEGATIVE (NEGATIVE); LEUKOCYTE ESTERASE UR AUTO RFX NEGATIVE (NEGATIVE); NITRITE, URINE AUTO RFX NEGATIVE (NEGATIVE); RBC, URINE AUTO RFX 7 /HPF (0-3); SQUAM EPITHELIAL CELL UR AURFX 3 /HPF (0-6); WBC, URINE AUTO RFX 1 /HPF (0-3)
[2024-09-14] VITALS (9 sets, daily range): BP systolic 110–138; BP diastolic 60–75; TEMP 96.6–98.3; O2SAT 96–100
[2024-09-14] MEDS: CEFEPIME HCL 2 GM in DEXTROSE 5% (D5W) ADV/MINI-BAG 50 ML IV SCH (03:53)
[2024-09-14 08:21] LABS: BASO % 0.3 % (0.0-1.0); EOS % 0.1 % (0.0-3.0); HEMATOCRIT 30.2 % (36.0-47.0); HEMOGLOBIN 9.6 g/dl (12.0-15.5); LYMPH # 0.8 10^3/uL (1.5-5.0); LYMPH % 10.9 % (24.0-44.0); MEAN CORPUSCULAR HEMOGLOBIN 26.4 pg (27.0-33.0); MEAN CORPUSCULAR HGB CONC 31.8 g/dl (32.0-36.5); MEAN CORPUSCULAR VOLUME 83.2 fl (80.0-96.0); MONO # 0.7 10^3/uL (0.0-0.8); NEUTROPHILS # 5.7 10^3/uL (1.5-8.5); NEUTROPHILS % 78.5 % (36.0-66.0); PLATELET COUNT, AUTOMATED 336 10^3/uL (150-450); RED BLOOD COUNT 3.63 10^6/uL (4.00-5.40); WHITE BLOOD COUNT 7.2 10^3/uL (4.0-10.0)
[2024-09-14 08:47] LABS: BLOOD UREA NITROGEN 9 MG/DL (9-23); C REACTIVE PROTEIN QUANTITATIV 20.74 MG/DL (<1.0); CALCIUM LEVEL 8.4 MG/DL (8.5-10.1); CARBON DIOXIDE LEVEL 29 MMOL/L (20-31); CHLORIDE LEVEL 105 MMOL/L (98-107); CREATININE FOR GFR 0.62 MG/DL (0.55-1.30); GLOMERULAR FILTRATION RATE > 60.0 (>58); GLUCOSE, FASTING 84 MG/DL (60-100); POTASSIUM SERUM 3.6 MMOL/L (3.5-5.1); SODIUM LEVEL 143 MMOL/L (136-145)
[2024-09-14] MEDS ORDERED: LIDOCAINE 1% MDV 20ML VIAL As Ordered ONE (09:39)
[2024-09-14] MEDS ORDERED: VANCOMYCIN HCL 1,000 MG, VIAL MATE ADAPTER 1 EACH in NS 250 ML IV SCH (10:00)
[2024-09-14] MEDS ORDERED: VANCOMYCIN HCL 750 MG, VIAL MATE ADAPTER 1 EACH in NS 250 ML IV SCH (11:00)
[2024-09-14] MEDS ORDERED: HYDROmorphone HCL 2MG/ML 1ML VIAL As Ordered ONE (12:01)
[2024-09-14] MEDS: VANCOMYCIN 500MG/10ML VIAL As Ordered ONE (12:43)
[2024-09-14] MEDS: cefTRIAXone SOD 1GM VIAL As Ordered ONE (13:00)
[2024-09-14] MEDS ORDERED: HYDROMORPHONE HCL 0.5 MG/ 0.5 ML SYRINGE IV PRN (13:00)
[2024-09-14] MEDS ORDERED: ONDANSETRON 4MG 2ML VIAL IV PRN (13:00)
[2024-09-14] MEDS ORDERED: fentaNYL 100 MCG/2 ML INJECTION IV PRN (13:00)
[2024-09-14] MEDS: VANCOMYCIN 1000MG/20ML VIAL As Ordered ONE (13:00)
[2024-09-14] MEDS: oxyCODONE 5MG TAB PO PRN (13:41)
[2024-09-14] MEDS: LR 1,000 ML IV SCH (14:31)
[2024-09-14] MEDS: cefTRIAXone SOD 2 GM in DEXTROSE 5% (D5W) ADV/MINI-BAG 50 ML IV SCH (17:32)
[2024-09-14] MEDS ORDERED: MURO OU SCH (21:00)
[2024-09-14] MEDS ORDERED: CYCLOSPORINE 0.05% OU SCH (21:00)
[2024-09-14] MEDS: ENOXAPARIN 80MG/0.8ML SYRINGE (J1650 PER 10MG) SC SCH (21:58)
[2024-09-15 04:16] VITALS: BP 128/60; TEMP 96.7; O2SAT 97
[2024-09-15 07:49] LABS: BASO % 0.2 % (0.0-1.0); HEMATOCRIT 28.2 % (36.0-47.0); HEMOGLOBIN 8.9 g/dl (12.0-15.5); LYMPH # 1.2 10^3/uL (1.5-5.0); LYMPH % 14.2 % (24.0-44.0); MEAN CORPUSCULAR HEMOGLOBIN 26.3 pg (27.0-33.0); MEAN CORPUSCULAR HGB CONC 31.6 g/dl (32.0-36.5); MEAN CORPUSCULAR VOLUME 83.2 fl (80.0-96.0); MONO # 0.8 10^3/uL (0.0-0.8); MONO % 9.2 % (2.0-8.0); NEUTROPHILS # 6.3 10^3/uL (1.5-8.5); NEUTROPHILS % 75.2 % (36.0-66.0); PLATELET COUNT, AUTOMATED 398 10^3/uL (150-450); RED BLOOD COUNT 3.39 10^6/uL (4.00-5.40); WHITE BLOOD COUNT 8.4 10^3/uL (4.0-10.0)
[2024-09-15 08:00] VITALS: BP 143/73; TEMP 97; O2SAT 98
[2024-09-15 08:06] LABS: C REACTIVE PROTEIN QUANTITATIV 18.34 MG/DL (<1.0)
[2024-09-15 08:07] LABS: BLOOD UREA NITROGEN 10 MG/DL (9-23); CALCIUM LEVEL 8.4 MG/DL (8.5-10.1); CARBON DIOXIDE LEVEL 30 MMOL/L (20-31); CHLORIDE LEVEL 105 MMOL/L (98-107); CREATININE FOR GFR 0.78 MG/DL (0.55-1.30); GLOMERULAR FILTRATION RATE > 60.0 (>58); GLUCOSE, FASTING 107 MG/DL (60-100); POTASSIUM SERUM 3.6 MMOL/L (3.5-5.1); SODIUM LEVEL 144 MMOL/L (136-145)
[2024-09-15] MEDS: UNRESOLVED PATIENT OWN MED ORDER XX SCH (09:00)
[2024-09-15 12:08] VITALS: BP 149/99; TEMP 97.5; O2SAT 100
[2024-09-15 16:00] VITALS: BP 131/62; TEMP 98.3; O2SAT 100
[2024-09-15 19:29] VITALS: BP 142/72; TEMP 98.3; O2SAT 95
[2024-09-15] MEDS: ACETAMINOPHEN 500 MG TAB PO PRN (21:21)
[2024-09-15 23:29] VITALS: BP 118/55; TEMP 97.6; O2SAT 92
[2024-09-16 03:14] VITALS: BP 135/75; TEMP 97.3; O2SAT 96
[2024-09-16 07:38] VITALS: BP 131/71; TEMP 97; O2SAT 93
[2024-09-16 08:34] LABS: BASO % 0.3 % (0.0-1.0); HEMOGLOBIN 8.4 g/dl (12.0-15.5); LYMPH # 1.2 10^3/uL (1.5-5.0); LYMPH % 20.2 % (24.0-44.0); MEAN CORPUSCULAR HEMOGLOBIN 26.3 pg (27.0-33.0); MEAN CORPUSCULAR HGB CONC 31.1 g/dl (32.0-36.5); MEAN CORPUSCULAR VOLUME 84.4 fl (80.0-96.0); MONO # 0.7 10^3/uL (0.0-0.8); MONO % 11.5 % (2.0-8.0); NEUTROPHILS % 67.2 % (36.0-66.0); PLATELET COUNT, AUTOMATED 401 10^3/uL (150-450); WHITE BLOOD COUNT 5.9 10^3/uL (4.0-10.0)
[2024-09-16 08:58] LABS: BLOOD UREA NITROGEN 9 MG/DL (9-23); CALCIUM LEVEL 8.5 MG/DL (8.5-10.1); CARBON DIOXIDE LEVEL 31 MMOL/L (20-31); CHLORIDE LEVEL 106 MMOL/L (98-107); GLOMERULAR FILTRATION RATE > 60.0 (>58); GLUCOSE, FASTING 85 MG/DL (60-100); POTASSIUM SERUM 3.4 MMOL/L (3.5-5.1); SODIUM LEVEL 145 MMOL/L (136-145)
[2024-09-16] MEDS: METAMUCIL (PSYLLIUM) PACKET PO SCH (09:00)
[2024-09-16] MEDS: MIRALAX *UNIT DOSE* 17GM PACKET PO SCH (09:00)
[2024-09-16 12:00] VITALS: BP 137/82; TEMP 97; O2SAT 96
[2024-09-16] MEDS: POTASSIUM CHLORIDE 10MEQ SR TABLET PO ONE (12:02)
[2024-09-16 16:00] VITALS: BP 123/63; TEMP 98.3; O2SAT 96
[2024-09-16 19:57] VITALS: BP 136/65; TEMP 99.1; O2SAT 97
[2024-09-16 23:48] VITALS: BP 123/59; TEMP 98.6; O2SAT 96
[2024-09-17 03:56] VITALS: BP 133/70; TEMP 97.6; O2SAT 96
[2024-09-17 07:18] LABS: BASO % 0.3 % (0.0-1.0); HEMATOCRIT 28.3 % (36.0-47.0); HEMOGLOBIN 8.8 g/dl (12.0-15.5); LYMPH # 1.7 10^3/uL (1.5-5.0); LYMPH % 23.6 % (24.0-44.0); MEAN CORPUSCULAR HEMOGLOBIN 26.2 pg (27.0-33.0); MEAN CORPUSCULAR HGB CONC 31.1 g/dl (32.0-36.5); MEAN CORPUSCULAR VOLUME 84.2 fl (80.0-96.0); MONO # 0.8 10^3/uL (0.0-0.8); MONO % 10.5 % (2.0-8.0); NEUTROPHILS # 4.7 10^3/uL (1.5-8.5); NEUTROPHILS % 64.4 % (36.0-66.0); PLATELET COUNT, AUTOMATED 483 10^3/uL (150-450); RED BLOOD COUNT 3.36 10^6/uL (4.00-5.40); WHITE BLOOD COUNT 7.2 10^3/uL (4.0-10.0)
[2024-09-17 07:43] LABS: BLOOD UREA NITROGEN 9 MG/DL (9-23); C REACTIVE PROTEIN QUANTITATIV 11.51 MG/DL (<1.0); CARBON DIOXIDE LEVEL 32 MMOL/L (20-31); CHLORIDE LEVEL 104 MMOL/L (98-107); CREATININE FOR GFR 0.77 MG/DL (0.55-1.30); GLOMERULAR FILTRATION RATE > 60.0 (>58); GLUCOSE, FASTING 87 MG/DL (60-100); POTASSIUM SERUM 3.3 MMOL/L (3.5-5.1); SODIUM LEVEL 143 MMOL/L (136-145)
[2024-09-17] MEDS: POTASSIUM CHLORIDE 10MEQ SR TABLET PO ONE (10:13)
[2024-09-17 12:00] VITALS: BP 156/72; TEMP 99.5; O2SAT 96
[2024-09-17 16:00] VITALS: BP 139/84; TEMP 100.1; O2SAT 98
[2024-09-17 17:19] LABS: URINE STREP PNEUMONIAE ANTIGEN NOT DETECTED (NOT DETECT)
[2024-09-17] MEDS: CYCLOBENZAPRINE 5MG TABLET PO PRN (19:53)
[2024-09-17 19:54] VITALS: BP 134/73; TEMP 99; O2SAT 97
[2024-09-18 00:09] VITALS: BP 118/65; TEMP 97; O2SAT 95
[2024-09-18 04:08] VITALS: BP 134/64; TEMP 97.3; O2SAT 97
[2024-09-18 06:21] LABS: HEMATOCRIT 26.3 % (36.0-47.0); HEMOGLOBIN 8.3 g/dl (12.0-15.5); MEAN CORPUSCULAR HEMOGLOBIN 25.9 pg (27.0-33.0); MEAN CORPUSCULAR HGB CONC 31.6 g/dl (32.0-36.5); MEAN CORPUSCULAR VOLUME 82.2 fl (80.0-96.0); PLATELET COUNT, AUTOMATED 440 10^3/uL (150-450); WHITE BLOOD COUNT 6.4 10^3/uL (4.0-10.0)
[2024-09-18 12:11] VITALS: BP 123/57; TEMP 98.1; O2SAT 96
[2024-09-18 20:00] VITALS: BP 135/62; TEMP 98; O2SAT 94
[2024-09-18 23:56] VITALS: BP 127/71
[2024-09-19 04:00] VITALS: BP 138/74; TEMP 97.6; O2SAT 94
[2024-09-19 05:26] VITALS: BP 136/75; TEMP 98.1
[2024-09-19 05:49] LABS: HEMATOCRIT 28.6 % (36.0-47.0); MEAN CORPUSCULAR HEMOGLOBIN 26.2 pg (27.0-33.0); MEAN CORPUSCULAR HGB CONC 31.5 g/dl (32.0-36.5); MEAN CORPUSCULAR VOLUME 83.4 fl (80.0-96.0); PLATELET COUNT, AUTOMATED 509 10^3/uL (150-450); RED BLOOD COUNT 3.43 10^6/uL (4.00-5.40); WHITE BLOOD COUNT 7.6 10^3/uL (4.0-10.0)
[2024-09-19 12:07] VITALS: BP 134/61; TEMP 98.1; O2SAT 99
[2024-09-19] MEDS: CYCLOBENZAPRINE 5MG TABLET PO SCH (12:57)
[2024-09-19] MEDS: GABAPENTIN 100 MG CAP PO SCH (12:58)
[2024-09-19 19:54] VITALS: BP 136/72; TEMP 97.8; O2SAT 100
[2024-09-20 04:38] VITALS: BP 114/65; TEMP 97.6; O2SAT 94
[2024-09-20 06:42] LABS: HEMATOCRIT 28.2 % (36.0-47.0); HEMOGLOBIN 8.7 g/dl (12.0-15.5); MEAN CORPUSCULAR HEMOGLOBIN 26.1 pg (27.0-33.0); MEAN CORPUSCULAR HGB CONC 30.9 g/dl (32.0-36.5); MEAN CORPUSCULAR VOLUME 84.7 fl (80.0-96.0); PLATELET COUNT, AUTOMATED 430 10^3/uL (150-450); RED BLOOD COUNT 3.33 10^6/uL (4.00-5.40); WHITE BLOOD COUNT 5.2 10^3/uL (4.0-10.0)
[2024-09-20 08:33] VITALS: BP 147/67; TEMP 98.7; O2SAT 98
[2024-09-20 12:00] VITALS: BP 152/78; TEMP 99; O2SAT 95
[2024-09-20 16:00] VITALS: BP 130/67; TEMP 100.4; O2SAT 98
[2024-09-20 20:03] VITALS: BP 129/75; TEMP 101.2; O2SAT 95
[2024-09-20 23:40] VITALS: BP 123/61; TEMP 98.2; O2SAT 93
[2024-09-21 03:56] VITALS: BP 121/65; TEMP 98.7; O2SAT 96
[2024-09-21] MEDS: SODIUM CHLORIDE 0.9% INJ 10 ML SYR IV SCH (08:31)
[2024-09-21 08:44] LABS: HEMOGLOBIN 8.9 g/dl (12.0-15.5); MEAN CORPUSCULAR HEMOGLOBIN 26.5 pg (27.0-33.0); MEAN CORPUSCULAR HGB CONC 31.8 g/dl (32.0-36.5); MEAN CORPUSCULAR VOLUME 83.3 fl (80.0-96.0); PLATELET COUNT, AUTOMATED 397 10^3/uL (150-450); RED BLOOD COUNT 3.36 10^6/uL (4.00-5.40); WHITE BLOOD COUNT 5.3 10^3/uL (4.0-10.0)
[2024-09-21 10:34] LABS: ALBUMIN 2.6 G/DL (3.2-5.2); ALKALINE PHOSPHATASE 124 U/L (35-104); ALT/SGPT 14 U/L (7.0-40); AST/SGOT 12 U/L (<34); BILIRUBIN,TOTAL 0.2 MG/DL (0.3-1.2); BLOOD UREA NITROGEN 10 MG/DL (9-23); CALCIUM LEVEL 9.3 MG/DL (8.5-10.1); CARBON DIOXIDE LEVEL 32 MMOL/L (20-31); CHLORIDE LEVEL 102 MMOL/L (98-107); CREATININE FOR GFR 0.88 MG/DL (0.55-1.30); GLOMERULAR FILTRATION RATE > 60.0 (>58); GLUCOSE, FASTING 86 MG/DL (60-100); POTASSIUM SERUM 3.7 MMOL/L (3.5-5.1); SODIUM LEVEL 142 MMOL/L (136-145); TOTAL PROTEIN 6.7 G/DL (5.7-8.2)
[2024-09-21 12:06] VITALS: BP 122/62; TEMP 97.7; O2SAT 100
[2024-09-21] MEDS: oxyCODONE 5MG TAB PO PRN (16:34)
[2024-09-21 19:57] VITALS: BP 123/65; TEMP 98.6; O2SAT 99
[2024-09-21 23:31] VITALS: BP 136/74; TEMP 98.7; O2SAT 98
[2024-09-22 03:46] VITALS: BP 133/69; TEMP 102.7; O2SAT 92
[2024-09-22 05:30] LABS: MEAN CORPUSCULAR HEMOGLOBIN 25.7 pg (27.0-33.0); MEAN CORPUSCULAR VOLUME 80.4 fl (80.0-96.0); PLATELET COUNT, AUTOMATED 363 10^3/uL (150-450); RED BLOOD COUNT 3.11 10^6/uL (4.00-5.40); WHITE BLOOD COUNT 6.8 10^3/uL (4.0-10.0)
[2024-09-22 06:04] LABS: C REACTIVE PROTEIN QUANTITATIV 9.95 MG/DL (<1.0)
[2024-09-22 06:08] LABS: ALBUMIN 2.2 G/DL (3.2-5.2); ALKALINE PHOSPHATASE 112 U/L (35-104); ALT/SGPT 13 U/L (7.0-40); AST/SGOT 9 U/L (<34); BILIRUBIN,TOTAL 0.2 MG/DL (0.3-1.2); BLOOD UREA NITROGEN 9 MG/DL (9-23); CALCIUM LEVEL 9.2 MG/DL (8.5-10.1); CARBON DIOXIDE LEVEL 30 MMOL/L (20-31); CHLORIDE LEVEL 100 MMOL/L (98-107); CREATININE FOR GFR 0.89 MG/DL (0.55-1.30); GLOMERULAR FILTRATION RATE > 60.0 (>58); GLUCOSE, FASTING 106 MG/DL (60-100); POTASSIUM SERUM 3.6 MMOL/L (3.5-5.1); SODIUM LEVEL 139 MMOL/L (136-145); TOTAL PROTEIN 6.1 G/DL (5.7-8.2)
[2024-09-22 06:54] VITALS: TEMP 97.8
[2024-09-22] MEDS ORDERED: PIPERACILLIN/TAZOBACTAM SOD 3.375 GM in DEXTROSE 5% (D5W) ADV/MINI-BAG 50 ML IV SCH (11:40)
[2024-09-22 12:14] VITALS: BP 139/76; TEMP 101.3; O2SAT 95
[2024-09-22] MEDS: CALCIUM CARBONATE 500 MG CHEW U/D PO PRN (12:34)
[2024-09-22 13:03] LABS: KETONE, URINE AUTO RFX NEGATIVE (NEGATIVE); LEUKOCYTE ESTERASE UR AUTO RFX NEGATIVE (NEGATIVE); MUCUS, URINE RFX SMALL (NEGATIVE); NITRITE, URINE AUTO RFX NEGATIVE (NEGATIVE); RBC, URINE AUTO RFX 1 /HPF (0-3); SQUAM EPITHELIAL CELL UR AURFX 10 /HPF (0-6); WBC, URINE AUTO RFX 4 /HPF (0-3)
[2024-09-22] MEDS: PIPERACILLIN/TAZOBACTAM SOD 4.5 GM in DEXTROSE 5% (D5W) ADV/MINI-BAG 50 ML IV SCH (13:22)
[2024-09-22 19:45] VITALS: BP 131/75; TEMP 101.8; O2SAT 93
[2024-09-22 20:36] LABS: BASO % 0.1 % (0.0-1.0); HEMATOCRIT 28.3 % (36.0-47.0); HEMOGLOBIN 8.7 g/dl (12.0-15.5); LYMPH # 1.5 10^3/uL (1.5-5.0); LYMPH % 19.4 % (24.0-44.0); MEAN CORPUSCULAR HEMOGLOBIN 25.9 pg (27.0-33.0); MEAN CORPUSCULAR HGB CONC 30.7 g/dl (32.0-36.5); MEAN CORPUSCULAR VOLUME 84.2 fl (80.0-96.0); MONO # 1.1 10^3/uL (0.0-0.8); MONO % 13.9 % (2.0-8.0); NEUTROPHILS % 65.9 % (36.0-66.0); PLATELET COUNT, AUTOMATED 379 10^3/uL (150-450); RED BLOOD COUNT 3.36 10^6/uL (4.00-5.40); WHITE BLOOD COUNT 7.5 10^3/uL (4.0-10.0)
[2024-09-22] MEDS: HYDROMORPHONE HCL 0.5 MG/ 0.5 ML SYRINGE IV ONE (20:41)
[2024-09-22 23:46] VITALS: BP 106/56; TEMP 97.7; O2SAT 96
[2024-09-23 03:32] VITALS: BP 101/59; TEMP 97.5; O2SAT 96
[2024-09-23 06:43] LABS: HEMATOCRIT 22.8 % (36.0-47.0); MEAN CORPUSCULAR HEMOGLOBIN 25.9 pg (27.0-33.0); MEAN CORPUSCULAR HGB CONC 30.7 g/dl (32.0-36.5); MEAN CORPUSCULAR VOLUME 84.4 fl (80.0-96.0); WHITE BLOOD COUNT 4.9 10^3/uL (4.0-10.0)
[2024-09-23 06:44] LABS: PLATELET COUNT, AUTOMATED 269 10^3/uL (150-450)
[2024-09-23 07:40] LABS: BILIRUBIN,TOTAL 0.2 MG/DL (0.3-1.2); C REACTIVE PROTEIN QUANTITATIV 9.18 MG/DL (<1.0); CREATININE FOR GFR 1.1 MG/DL (0.55-1.30); GLOMERULAR FILTRATION RATE 56.7 (>58); POTASSIUM SERUM 3.2 MMOL/L (3.5-5.1); TOTAL PROTEIN 5.5 G/DL (5.7-8.2)
[2024-09-23] MEDS: POTASSIUM CHLORIDE 10MEQ SR TABLET PO ONE (09:58)
[2024-09-23 11:06] LABS: IMMUNOGLOBULIN M 150.9 MG/DL (50-300)
[2024-09-23 12:00] VITALS: BP 112/61; TEMP 97.2; O2SAT 96
[2024-09-23] MEDS ORDERED: FLUID PLACE HOLDER IV SCH (12:10)
[2024-09-23] MEDS ORDERED: VANCOMYCIN HCL IV SCH (12:10)
[2024-09-23 14:37] LABS: HEMATOCRIT 28.1 % (36.0-47.0); HEMOGLOBIN 8.7 g/dl (12.0-15.5); MEAN CORPUSCULAR HEMOGLOBIN 25.8 pg (27.0-33.0); MEAN CORPUSCULAR VOLUME 83.4 fl (80.0-96.0); PLATELET COUNT, AUTOMATED 306 10^3/uL (150-450); RED BLOOD COUNT 3.37 10^6/uL (4.00-5.40); WHITE BLOOD COUNT 6.1 10^3/uL (4.0-10.0)
[2024-09-23] MEDS: VANCOMYCIN HCL 1,000 MG, VIAL MATE ADAPTER 1 EACH in NS 250 ML IV ONE (14:43)
[2024-09-23] MEDS: LR 1,000 ML IV SCH (16:00)
[2024-09-23 19:52] VITALS: BP 116/62; TEMP 98.3; O2SAT 99
[2024-09-23] MEDS: VANCOMYCIN HCL 1,000 MG, VIAL MATE ADAPTER 1 EACH in NS 250 ML IV SCH (21:04)
[2024-09-23 23:59] VITALS: BP 127/64; TEMP 99.9; O2SAT 98
[2024-09-24 03:30] VITALS: BP 131/67; TEMP 101.4; O2SAT 100
[2024-09-24 07:42] LABS: BASO % 0.2 % (0.0-1.0); HEMOGLOBIN 7.6 g/dl (12.0-15.5); LYMPH # 0.9 10^3/uL (1.5-5.0); LYMPH % 18.3 % (24.0-44.0); MEAN CORPUSCULAR HEMOGLOBIN 26.5 pg (27.0-33.0); MEAN CORPUSCULAR HGB CONC 31.7 g/dl (32.0-36.5); MEAN CORPUSCULAR VOLUME 83.6 fl (80.0-96.0); MONO # 0.7 10^3/uL (0.0-0.8); MONO % 13.6 % (2.0-8.0); NEUTROPHILS # 3.3 10^3/uL (1.5-8.5); NEUTROPHILS % 67.3 % (36.0-66.0); PLATELET COUNT, AUTOMATED 265 10^3/uL (150-450); RED BLOOD COUNT 2.87 10^6/uL (4.00-5.40); WHITE BLOOD COUNT 4.9 10^3/uL (4.0-10.0)
[2024-09-24 08:16] LABS: C REACTIVE PROTEIN QUANTITATIV 11.38 MG/DL (<1.0)
[2024-09-24 08:17] LABS: ALKALINE PHOSPHATASE 339 U/L (35-104); ALT/SGPT 28 U/L (7.0-40); AST/SGOT 21 U/L (<34); BILIRUBIN,DIRECT < 0.1 MG/DL (<0.4); BILIRUBIN,TOTAL 0.2 MG/DL (0.3-1.2); BLOOD UREA NITROGEN 9 MG/DL (9-23); CALCIUM LEVEL 8.5 MG/DL (8.5-10.1); CARBON DIOXIDE LEVEL 28 MMOL/L (20-31); CHLORIDE LEVEL 104 MMOL/L (98-107); CREATININE FOR GFR 0.99 MG/DL (0.55-1.30); GLOMERULAR FILTRATION RATE > 60.0 (>58); GLUCOSE, FASTING 91 MG/DL (60-100); POTASSIUM SERUM 3.8 MMOL/L (3.5-5.1); SODIUM LEVEL 140 MMOL/L (136-145); TOTAL PROTEIN 5.5 G/DL (5.7-8.2)
[2024-09-24] MEDS: VANCOMYCIN HCL 750 MG, VIAL MATE ADAPTER 1 EACH in NS 250 ML IV SCH (10:26)
[2024-09-24 12:00] VITALS: BP 127/69; TEMP 98.3; O2SAT 98
[2024-09-24 16:25] VITALS: TEMP 102.5
[2024-09-24] MEDS: KETOROLAC 30 MG/ML 1ML VIAL IV ONE (18:10)
[2024-09-24 20:18] VITALS: BP 105/50; TEMP 98.6; O2SAT 93
[2024-09-24 20:43] LABS: HEPATITIS B SURFACE ANTIGEN NEGATIVE (NEGATIVE)
[2024-09-24 21:04] LABS: HEPATITIS C VIRUS ABY INDEX 0.02 INDEX (<0.8)
[2024-09-24] MEDS: cefTRIAXone SOD 2 GM in DEXTROSE 5% (D5W) ADV/MINI-BAG 50 ML IV SCH (21:25)
[2024-09-24 22:03] LABS: HIV 1&2 SCREEN REACTIVE (NEGATIVE)
[2024-09-25] VITALS (9 sets, daily range): BP systolic 119–136; BP diastolic 56–79; TEMP 97.7–102.3; O2SAT 92–100
[2024-09-25 07:17] LABS: BASO % 0.3 % (0.0-1.0); EOS # 0.1 10^3/uL (0.0-0.5); EOS % 2.4 % (0.0-3.0); HEMATOCRIT 27.9 % (36.0-47.0); HEMOGLOBIN 8.6 g/dl (12.0-15.5); LYMPH # 0.9 10^3/uL (1.5-5.0); MEAN CORPUSCULAR HEMOGLOBIN 25.7 pg (27.0-33.0); MEAN CORPUSCULAR HGB CONC 30.8 g/dl (32.0-36.5); MEAN CORPUSCULAR VOLUME 83.3 fl (80.0-96.0); MONO # 0.6 10^3/uL (0.0-0.8); MONO % 10.3 % (2.0-8.0); NEUTROPHILS # 4.2 10^3/uL (1.5-8.5); NEUTROPHILS % 71.5 % (36.0-66.0); PLATELET COUNT, AUTOMATED 274 10^3/uL (150-450); RED BLOOD COUNT 3.35 10^6/uL (4.00-5.40); WHITE BLOOD COUNT 5.9 10^3/uL (4.0-10.0)
[2024-09-25 07:33] LABS: C REACTIVE PROTEIN QUANTITATIV 18.96 MG/DL (<1.0)
[2024-09-25 07:49] LABS: ALBUMIN 2.4 G/DL (3.2-5.2); ALKALINE PHOSPHATASE 309 U/L (35-104); ALT/SGPT 23 U/L (7.0-40); AST/SGOT 16 U/L (<34); BILIRUBIN,DIRECT < 0.1 MG/DL (<0.4); BILIRUBIN,TOTAL 0.2 MG/DL (0.3-1.2); BLOOD UREA NITROGEN 10 MG/DL (9-23); CALCIUM LEVEL 8.6 MG/DL (8.5-10.1); CARBON DIOXIDE LEVEL 28 MMOL/L (20-31); CHLORIDE LEVEL 103 MMOL/L (98-107); CREATININE FOR GFR 1.01 MG/DL (0.55-1.30); GLOMERULAR FILTRATION RATE > 60.0 (>58); GLUCOSE, FASTING 89 MG/DL (60-100); POTASSIUM SERUM 3.6 MMOL/L (3.5-5.1); SODIUM LEVEL 142 MMOL/L (136-145); TOTAL PROTEIN 6.1 G/DL (5.7-8.2)
[2024-09-25] MEDS: ENOXAPARIN 80MG/0.8ML SYRINGE (J1650 PER 10MG) SC SCH (15:37)
[2024-09-26 03:48] VITALS: BP 160/74; TEMP 102; O2SAT 98
[2024-09-26 04:56] VITALS: TEMP 102.9
[2024-09-26] MEDS: ENOXAPARIN 80MG/0.8ML SYRINGE (J1650 PER 10MG) SC SCH (05:10)
[2024-09-26 06:02] VITALS: TEMP 101.8
[2024-09-26 08:15] LABS: BASO % 0.3 % (0.0-1.0); EOS % 0.1 % (0.0-3.0); HEMOGLOBIN 8.3 g/dl (12.0-15.5); LYMPH # 1.7 10^3/uL (1.5-5.0); LYMPH % 13.7 % (24.0-44.0); MEAN CORPUSCULAR HEMOGLOBIN 25.7 pg (27.0-33.0); MEAN CORPUSCULAR HGB CONC 30.7 g/dl (32.0-36.5); MEAN CORPUSCULAR VOLUME 83.6 fl (80.0-96.0); MONO # 1.1 10^3/uL (0.0-0.8); MONO % 9.3 % (2.0-8.0); NEUTROPHILS # 9.2 10^3/uL (1.5-8.5); PLATELET COUNT, AUTOMATED 335 10^3/uL (150-450); RED BLOOD COUNT 3.23 10^6/uL (4.00-5.40); WHITE BLOOD COUNT 12.1 10^3/uL (4.0-10.0)
[2024-09-26 08:44] LABS: C REACTIVE PROTEIN QUANTITATIV 18.43 MG/DL (<1.0)
[2024-09-26 08:46] LABS: ALBUMIN 2.4 G/DL (3.2-5.2); ALKALINE PHOSPHATASE 264 U/L (35-104); ALT/SGPT 18 U/L (7.0-40); AST/SGOT 12 U/L (<34); BILIRUBIN,DIRECT < 0.1 MG/DL (<0.4); BILIRUBIN,TOTAL 0.2 MG/DL (0.3-1.2); BLOOD UREA NITROGEN 9 MG/DL (9-23); CALCIUM LEVEL 9.1 MG/DL (8.5-10.1); CARBON DIOXIDE LEVEL 28 MMOL/L (20-31); CHLORIDE LEVEL 104 MMOL/L (98-107); CREATININE FOR GFR 0.95 MG/DL (0.55-1.30); GLOMERULAR FILTRATION RATE > 60.0 (>58); GLUCOSE, FASTING 107 MG/DL (60-100); POTASSIUM SERUM 3.3 MMOL/L (3.5-5.1); SODIUM LEVEL 140 MMOL/L (136-145); TOTAL PROTEIN 6.5 G/DL (5.7-8.2)
[2024-09-26 12:00] VITALS: TEMP 100.7; O2SAT 96
[2024-09-26 17:37] VITALS: TEMP 102.8
[2024-09-26 20:00] VITALS: BP 123/69; TEMP 99.6; O2SAT 98
[2024-09-26] MEDS: SODIUM CHLORIDE 0.9% INJ 10 ML SYR IV PRN (21:36)
[2024-09-27] VITALS (11 sets, daily range): BP systolic 109–140; BP diastolic 58–78; TEMP 98.8–102.5; O2SAT 91–100
[2024-09-27 06:38] LABS: BASO % 0.2 % (0.0-1.0); HEMATOCRIT 24.3 % (36.0-47.0); HEMOGLOBIN 7.4 g/dl (12.0-15.5); LYMPH # 1.4 10^3/uL (1.5-5.0); LYMPH % 16.7 % (24.0-44.0); MEAN CORPUSCULAR HGB CONC 30.5 g/dl (32.0-36.5); MEAN CORPUSCULAR VOLUME 82.1 fl (80.0-96.0); MONO % 11.7 % (2.0-8.0); NEUTROPHILS # 5.8 10^3/uL (1.5-8.5); NEUTROPHILS % 70.9 % (36.0-66.0); PLATELET COUNT, AUTOMATED 265 10^3/uL (150-450); RED BLOOD COUNT 2.96 10^6/uL (4.00-5.40); WHITE BLOOD COUNT 8.2 10^3/uL (4.0-10.0)
[2024-09-27 06:53] LABS: C REACTIVE PROTEIN QUANTITATIV 17.57 MG/DL (<1.0)
[2024-09-27 06:57] LABS: ALBUMIN 2.1 G/DL (3.2-5.2); ALKALINE PHOSPHATASE 211 U/L (35-104); ALT/SGPT 14 U/L (7.0-40); AST/SGOT 13 U/L (<34); BILIRUBIN,DIRECT < 0.1 MG/DL (<0.4); BILIRUBIN,TOTAL 0.2 MG/DL (0.3-1.2); BLOOD UREA NITROGEN 11 MG/DL (9-23); CALCIUM LEVEL 8.6 MG/DL (8.5-10.1); CARBON DIOXIDE LEVEL 29 MMOL/L (20-31); CHLORIDE LEVEL 102 MMOL/L (98-107); CREATININE FOR GFR 0.92 MG/DL (0.55-1.30); GLOMERULAR FILTRATION RATE > 60.0 (>58); GLUCOSE, FASTING 89 MG/DL (60-100); POTASSIUM SERUM 3.7 MMOL/L (3.5-5.1); SODIUM LEVEL 141 MMOL/L (136-145); TOTAL PROTEIN 5.8 G/DL (5.7-8.2)
[2024-09-27 12:27] LABS: HEMATOCRIT 24.5 % (36.0-47.0); HEMOGLOBIN 7.7 g/dl (12.0-15.5)
[2024-09-27] MEDS ORDERED: METO1TAB87 PO (16:54)
[2024-09-27] MEDS ORDERED: AMLO1TAB25 PO (16:54)
== END 2024-09-27 22:46 | disposition short-term general hospital (02) | DRG 720 ==
LOC: M ED 08:50 → M ED INP 13:35 → M MSPAV 16:05 → M PCU 09-04 08:09 → EEVIPCON 09-04 10:42 → OBSVTOIN 09-04 10:42 → M PCU 09-04 12:30 → M ICU 09-06 17:26 → M PCU 09-07 14:54 → M MS4PR 09-10 01:26
PROVIDERS: ADMIT Internal Medicine; ATTEND Student in an Organized Health Care Education/Training Program
PROC: B246ZZZ Ultrasonography of Right and Left Heart (ICD-10-PCS; 2024-09-04)
PROC: 0S9B3ZX Drainage of Left Hip Joint, Percutaneous Approach, Diagnostic (ICD-10-PCS; principal; 2024-09-04 14:00)
PROC: 5A1935Z Respiratory Ventilation, Less than 24 Consecutive Hours (ICD-10-PCS; 2024-09-06)
PROC: 0SBB0ZX Excision of Left Hip Joint, Open Approach, Diagnostic (ICD-10-PCS; 2024-09-06)
PROC: 0SBB0ZX Excision of Left Hip Joint, Open Approach, Diagnostic (ICD-10-PCS; 2024-09-14)
PROC: 3E10X8Z Irrigation of Skin and Mucous Membranes using Irrigating Substance (ICD-10-PCS; 2024-09-14)
PROC: 3E1U38Z Irrigation of Joints using Irrigating Substance, Percutaneous Approach (ICD-10-PCS; 2024-09-14)
PROC: 02H633Z Insertion of Infusion Device into Right Atrium, Percutaneous Approach (ICD-10-PCS; 2024-09-17)
PROC: B246ZZZ Ultrasonography of Right and Left Heart (ICD-10-PCS; 2024-09-22)
DX: A40.8 Other streptococcal sepsis (principal); J96.01 Acute respiratory failure with hypoxia; U07.1 COVID-19; J15.69 Pneumonia due to other Gram-negative bacteria; N17.9 Acute kidney failure, unspecified; M00.852 Arthritis due to other bacteria, left hip; J12.89 Other viral pneumonia; R65.20 Severe sepsis without septic shock; D69.6 Thrombocytopenia, unspecified; I82.412 Acute embolism and thrombosis of left femoral vein; M86.152 Other acute osteomyelitis, left femur; L03.116 Cellulitis of left lower limb; K21.9 Gastro-esophageal reflux disease without esophagitis; R51.9 Headache, unspecified; T81.41XA Infection following a procedure, superficial incisional surgical site, initial encounter; F32.A Depression, unspecified; B97.10 Unspecified enterovirus as the cause of diseases classified elsewhere; R50.9 Fever, unspecified; M16.12 Unilateral primary osteoarthritis, left hip; J98.11 Atelectasis; E66.9 Obesity, unspecified; Z68.32 Body mass index [BMI] 32.0-32.9, adult; I73.00 Raynaud's syndrome without gangrene; H40.9 Unspecified glaucoma; B97.89 Other viral agents as the cause of diseases classified elsewhere; M25.452 Effusion, left hip; Z79.1 Long term (current) use of non-steroidal anti-inflammatories (NSAID); Z79.899 Other long term (current) drug therapy; Y83.8 Other surgical procedures as the cause of abnormal reaction of the patient, or of later complication, without mention of misadventure at the time of the procedure

== ENCOUNTER → 2024-11-07 | Outpatient (REF) | payer OTHER, BC ==
[~2024-11-07] MED LIST changes: +ACET650T61 PO; +AMLO1TAB25 PO; +GABA-1172 PO; +MAGN500T12 PO; +METO1TAB87 PO; +REST0.05 OU; +SODI2OPD OU
[2024-11-07 11:08] LABS: HEMATOCRIT 33.4 % (36.0-47.0); HEMOGLOBIN 10.3 g/dl (12.0-15.5); LYMPH # 1.4 10^3/uL (1.5-5.0); LYMPH % 26.8 % (24.0-44.0); MEAN CORPUSCULAR HGB CONC 30.8 g/dl (32.0-36.5); MEAN CORPUSCULAR VOLUME 87.7 fl (80.0-96.0); MONO # 0.5 10^3/uL (0.0-0.8); MONO % 9.7 % (2.0-8.0); NEUTROPHILS # 3.3 10^3/uL (1.5-8.5); NEUTROPHILS % 62.9 % (36.0-66.0); PLATELET COUNT, AUTOMATED 273 10^3/uL (150-450); RED BLOOD COUNT 3.81 10^6/uL (4.00-5.40); WHITE BLOOD COUNT 5.3 10^3/uL (4.0-10.0)
[2024-11-07 11:15] LABS: ERYTHROCYTE SEDIMENTATION RATE 78 mm/hr (0-20)
[2024-11-07 11:26] LABS: ALBUMIN 3.1 G/DL (3.2-5.2); ALKALINE PHOSPHATASE 252 U/L (35-104); ALT/SGPT 11 U/L (7.0-40); AST/SGOT 9 U/L (<34); BILIRUBIN,TOTAL 0.2 MG/DL (0.3-1.2); BLOOD UREA NITROGEN 12 MG/DL (9-23); C REACTIVE PROTEIN QUANTITATIV 1.92 MG/DL (<1.0); CARBON DIOXIDE LEVEL 29 MMOL/L (20-31); CHLORIDE LEVEL 105 MMOL/L (98-107); CREATININE FOR GFR 0.81 MG/DL (0.55-1.30); GLOMERULAR FILTRATION RATE > 60.0 (>58); GLUCOSE, FASTING 101 MG/DL (60-100); POTASSIUM SERUM 4.1 MMOL/L (3.5-5.1); SODIUM LEVEL 143 MMOL/L (136-145); TOTAL PROTEIN 6.1 G/DL (5.7-8.2)
== END ==
LOC: M LAB REF 09:47
PROVIDERS: ATTEND Internal Medicine Infectious Disease
DX: M00.252 Other streptococcal arthritis, left hip (principal)

== ENCOUNTER → 2024-11-07 | Outpatient (REF) | payer OTHER, BC | LOC: M LAB REF 09:49 | PROVIDERS: ATTEND Pediatrics | DX: Z53.9 Procedure and treatment not carried out, unspecified reason (principal); M01.X52 Direct infection of left hip in infectious and parasitic diseases classified elsewhere ==

== ENCOUNTER → 2024-11-12 | Outpatient (REF) | payer OTHER, BC ==
[2024-11-12 11:16] LABS: ALKALINE PHOSPHATASE 255 U/L (35-104); ALT/SGPT < 9 U/L (7.0-40); AST/SGOT 8 U/L (<34); BILIRUBIN,TOTAL 0.2 MG/DL (0.3-1.2); BLOOD UREA NITROGEN 10 MG/DL (9-23); C REACTIVE PROTEIN QUANTITATIV 1.02 MG/DL (<1.0); CALCIUM LEVEL 8.8 MG/DL (8.5-10.1); CARBON DIOXIDE LEVEL 30 MMOL/L (20-31); CHLORIDE LEVEL 106 MMOL/L (98-107); GLOMERULAR FILTRATION RATE > 60.0 (>58); GLUCOSE, FASTING 101 MG/DL (60-100); POTASSIUM SERUM 4.1 MMOL/L (3.5-5.1); SODIUM LEVEL 143 MMOL/L (136-145); TOTAL PROTEIN 6.3 G/DL (5.7-8.2)
[2024-11-12 20:15] LABS: BASO % 0.2 % (0.0-1.0); HEMATOCRIT 34.9 % (36.0-47.0); HEMOGLOBIN 10.7 g/dl (12.0-15.5); LYMPH # 1.5 10^3/uL (1.5-5.0); LYMPH % 28.9 % (24.0-44.0); MEAN CORPUSCULAR HEMOGLOBIN 26.8 pg (27.0-33.0); MEAN CORPUSCULAR HGB CONC 30.7 g/dl (32.0-36.5); MEAN CORPUSCULAR VOLUME 87.5 fl (80.0-96.0); MONO # 0.5 10^3/uL (0.0-0.8); MONO % 10.4 % (2.0-8.0); NEUTROPHILS % 60.1 % (36.0-66.0); PLATELET COUNT, AUTOMATED 281 10^3/uL (150-450); RED BLOOD COUNT 3.99 10^6/uL (4.00-5.40)
[2024-11-12 20:51] LABS: ERYTHROCYTE SEDIMENTATION RATE 85 mm/hr (0-20)
== END ==
LOC: M LAB REF 10:20
PROVIDERS: ATTEND Internal Medicine Infectious Disease
DX: M00.252 Other streptococcal arthritis, left hip (principal)

== ENCOUNTER → 2024-11-20 | Outpatient (REF) | payer OTHER, BC ==
[2024-11-20 12:01] LABS: BASO % 0.2 % (0.0-1.0); HEMATOCRIT 35.2 % (36.0-47.0); HEMOGLOBIN 10.9 g/dl (12.0-15.5); LYMPH # 1.5 10^3/uL (1.5-5.0); LYMPH % 30.9 % (24.0-44.0); MEAN CORPUSCULAR HEMOGLOBIN 26.7 pg (27.0-33.0); MEAN CORPUSCULAR VOLUME 86.1 fl (80.0-96.0); MONO # 0.5 10^3/uL (0.0-0.8); NEUTROPHILS # 2.9 10^3/uL (1.5-8.5); NEUTROPHILS % 58.5 % (36.0-66.0); PLATELET COUNT, AUTOMATED 238 10^3/uL (150-450); RED BLOOD COUNT 4.09 10^6/uL (4.00-5.40); WHITE BLOOD COUNT 4.9 10^3/uL (4.0-10.0)
[2024-11-20 12:24] LABS: ERYTHROCYTE SEDIMENTATION RATE 66 mm/hr (0-20)
[2024-11-20 12:36] LABS: C REACTIVE PROTEIN QUANTITATIV 1.52 MG/DL (<1.0)
[2024-11-20 12:37] LABS: ALBUMIN 3.3 G/DL (3.2-5.2); ALKALINE PHOSPHATASE 217 U/L (35-104); ALT/SGPT 9 U/L (7.0-40); AST/SGOT 10 U/L (<34); BILIRUBIN,TOTAL 0.2 MG/DL (0.3-1.2); BLOOD UREA NITROGEN 13 MG/DL (9-23); CALCIUM LEVEL 9.3 MG/DL (8.5-10.1); CARBON DIOXIDE LEVEL 30 MMOL/L (20-31); CHLORIDE LEVEL 105 MMOL/L (98-107); CREATININE FOR GFR 0.85 MG/DL (0.55-1.30); GLOMERULAR FILTRATION RATE > 60.0 (>58); GLUCOSE, FASTING 85 MG/DL (60-100); POTASSIUM SERUM 4.3 MMOL/L (3.5-5.1); SODIUM LEVEL 144 MMOL/L (136-145); TOTAL PROTEIN 6.3 G/DL (5.7-8.2)
== END ==
LOC: M LAB REF 11:31
PROVIDERS: ATTEND Internal Medicine Infectious Disease
DX: M00.252 Other streptococcal arthritis, left hip (principal)

== ENCOUNTER → 2024-12-12 | Outpatient (CLI) | payer BC, OTHER ==
[2024-12-12 11:51] LABS: BASO % 0.2 % (0.0-1.0); HEMATOCRIT 39.2 % (36.0-47.0); HEMOGLOBIN 12.2 g/dl (12.0-15.5); LYMPH # 1.2 10^3/uL (1.5-5.0); LYMPH % 22.7 % (24.0-44.0); MEAN CORPUSCULAR HEMOGLOBIN 26.5 pg (27.0-33.0); MEAN CORPUSCULAR HGB CONC 31.1 g/dl (32.0-36.5); MONO # 0.4 10^3/uL (0.0-0.8); MONO % 7.2 % (2.0-8.0); NEUTROPHILS # 3.8 10^3/uL (1.5-8.5); NEUTROPHILS % 69.5 % (36.0-66.0); PLATELET COUNT, AUTOMATED 247 10^3/uL (150-450); RED BLOOD COUNT 4.61 10^6/uL (4.00-5.40); WHITE BLOOD COUNT 5.4 10^3/uL (4.0-10.0)
[2024-12-12 11:59] LABS: ERYTHROCYTE SEDIMENTATION RATE 57 mm/hr (0-20)
== END ==
LOC: M LAB 10:58
PROVIDERS: ATTEND Internal Medicine Infectious Disease
DX: M00.252 Other streptococcal arthritis, left hip (principal)

== ENCOUNTER → 2025-01-05 | Outpatient (CLI) | payer BC | LOC: M LAB 09:14 | PROVIDERS: ATTEND Orthopaedic Surgery | DX: T84.50XS Infection and inflammatory reaction due to unspecified internal joint prosthesis, sequela (principal) ==

== ENCOUNTER 2025-05-12 21:07 | Inpatient (IN) | payer BC ==
[~2025-05-12] VITALS: Ht 149.9 cm; Wt 77.4 kg
[2025-05-12 21:58] LABS: BASO # 0.0 10^3/uL (0.0-0.2); BASO % 0.1 % (0.0-1.0); EOS # 0.0 10^3/uL (0.0-0.5); EOS % 0.0 % (0.0-3.0); LYMPH # 1.1 10^3/uL (1.5-5.0); LYMPH % 8.9 % (24.0-44.0); MONO # 0.9 10^3/uL (0.0-0.8); MONO % 7.5 % (2.0-8.0); NEUTROPHILS # 10.5 10^3/uL (1.5-8.5); NEUTROPHILS % 83.2 % (36.0-66.0); PLATELET COUNT, AUTOMATED 257 10^3/uL (150-450)
[2025-05-12 21:59] LABS: KETONE, URINE AUTO RFX NEGATIVE (NEGATIVE); LEUKOCYTE ESTERASE UR AUTO RFX NEGATIVE (NEGATIVE); NITRITE, URINE AUTO RFX NEGATIVE (NEGATIVE); RBC, URINE AUTO RFX 0 /HPF (0-3); SQUAM EPITHELIAL CELL UR AURFX 1 /HPF (0-6); WBC, URINE AUTO RFX 0 /HPF (0-3)
[2025-05-12 22:30] LABS: CALCIUM LEVEL 9.6 MG/DL (8.5-10.1); CARBON DIOXIDE LEVEL 24.0 MMOL/L (20-31); CHLORIDE LEVEL 104.0 MMOL/L (98-107); CREATININE FOR GFR 1.1 MG/DL (0.55-1.30); GLOMERULAR FILTRATION RATE 62.0 (>58); POTASSIUM SERUM 4.0 MMOL/L (3.5-5.1); SODIUM LEVEL 141.0 MMOL/L (136-145)
[2025-05-13] VITALS (10 sets, daily range): BP systolic 102–132; BP diastolic 59–84; TEMP 96.8–102.6; O2SAT 97
[2025-05-13] MEDS: MORPHINE 4 MG/ML 1 ML VIAL IV ONE (03:06)
[2025-05-13] MEDS: NS (Normal Saline) 0.9% 1,000 ML IV ONE ×3 (03:06→21:33)
[2025-05-13] MEDS: ACETAMINOPHEN 325 MG TAB PO ONE (03:07)
[2025-05-13] MEDS: ceFAZolin SODIUM 2 GM in DEXTROSE 5% (D5W) ADV/MINI-BAG 50 ML IV ONE (03:09)
[2025-05-13 03:28] LABS: INR 1.15
[2025-05-13 03:38] LABS: ALT/SGPT 14.0 U/L (7.0-40); AST/SGOT 16.0 U/L (<34)
[2025-05-13 04:32] LABS: C REACTIVE PROTEIN QUANTITATIV 12.64 MG/DL (<1.0)
[2025-05-13 05:08] LABS: ERYTHROCYTE SEDIMENTATION RATE 67 mm/hr (0-20)
[2025-05-13] MEDS ORDERED: MAALOX 30 ML SUSP *UDC PO PRN (06:20)
[2025-05-13] MEDS ORDERED: MOM 30 ML SUSPENSION UDC PO PRN (06:20)
[2025-05-13] MEDS ORDERED: ELIQ5TAB PO (06:39)
[2025-05-13] MEDS ORDERED: METH-1164 PO (06:39)
[2025-05-13] MEDS ORDERED: ACET-897 PO (06:39)
[2025-05-13] MEDS ORDERED: METO1TAB87 PO (06:39)
[2025-05-13] MEDS ORDERED: HOME MED LIST COMPLETE! XX SCH (06:40)
[2025-05-13] MEDS: NS (Normal Saline) 0.9% 1,000 ML IV SCH (06:57)
[2025-05-13] MEDS: VANCOMYCIN HCL 1,500 MG, VIAL MATE ADAPTER 1 EACH in NS 500 ML IV ONE (06:58)
[2025-05-13] MEDS ORDERED: ISOVUE-370 76% 100 ML VIAL As Ordered ONE (08:38)
[2025-05-13 08:39] LABS: BASO # 0.0 10^3/uL (0.0-0.2); BASO % 0.0 % (0.0-1.0); EOS # 0.0 10^3/uL (0.0-0.5); EOS % 0.0 % (0.0-3.0); LYMPH # 1.4 10^3/uL (1.5-5.0); LYMPH % 17.1 % (24.0-44.0); MONO # 0.8 10^3/uL (0.0-0.8); MONO % 9.9 % (2.0-8.0); NEUTROPHILS # 6.0 10^3/uL (1.5-8.5); NEUTROPHILS % 72.9 % (36.0-66.0); PLATELET COUNT, AUTOMATED 197 10^3/uL (150-450)
[2025-05-13 09:03] LABS: C REACTIVE PROTEIN QUANTITATIV 11.81 MG/DL (<1.0); CALCIUM LEVEL 8.1 MG/DL (8.5-10.1); CARBON DIOXIDE LEVEL 23.0 MMOL/L (20-31); CHLORIDE LEVEL 111.0 MMOL/L (98-107); CREATININE FOR GFR 0.91 MG/DL (0.55-1.30); GLOMERULAR FILTRATION RATE 77.8 (>58); POTASSIUM SERUM 3.5 MMOL/L (3.5-5.1); SODIUM LEVEL 145.0 MMOL/L (136-145)
[2025-05-13] MEDS ORDERED: AMLO1TAB25 PO (10:48)
[2025-05-13] MEDS: PANTOPRAZOLE 40MG TAB PO SCH (11:10)
[2025-05-13] MEDS: METOPROLOL TART 12.5 MG PER 1/2 TAB PO SCH (11:10)
[2025-05-13] MEDS: ENOXAPARIN 80 MG/0.8 ML SYRINGE (J1650 PER 10MG) SC SCH (11:11)
[2025-05-13] MEDS: DOCUSATE SODIUM 100 MG CAPSULE PO SCH (11:11)
[2025-05-13] MEDS: ACETAMINOPHEN 325 MG TAB PO PRN (13:29)
[2025-05-13] MEDS: MUPIROCIN 2% OINT 22 GM TUBE TOP SCH (13:30)
[2025-05-13] MEDS: GABAPENTIN 300 MG CAP PO SCH (15:42)
[2025-05-13] MEDS: KETOROLAC 30 MG/ML 1 ML VIAL IV ONE ×2 (15:43→21:26)
[2025-05-13] MEDS: VANCOMYCIN HCL 750 MG, VIAL MATE ADAPTER 1 EACH in NS 250 ML IV SCH (20:51)
[2025-05-14] VITALS (8 sets, daily range): BP systolic 102–144; BP diastolic 58–85; TEMP 99–101; O2SAT 96–100
[2025-05-14 07:03] LABS: BASO # 0.0 10^3/uL (0.0-0.2); BASO % 0.1 % (0.0-1.0); EOS # 0.0 10^3/uL (0.0-0.5); EOS % 0.0 % (0.0-3.0); LYMPH # 1.4 10^3/uL (1.5-5.0); LYMPH % 13.5 % (24.0-44.0); MONO # 1.0 10^3/uL (0.0-0.8); MONO % 10.1 % (2.0-8.0); NEUTROPHILS # 7.6 10^3/uL (1.5-8.5); NEUTROPHILS % 75.9 % (36.0-66.0); PLATELET COUNT, AUTOMATED 179 10^3/uL (150-450)
[2025-05-14 09:03] LABS: ALT/SGPT 42.0 U/L (7.0-40); AST/SGOT 29.0 U/L (<34); CALCIUM LEVEL 8.4 MG/DL (8.5-10.1); CARBON DIOXIDE LEVEL 23.0 MMOL/L (20-31); CHLORIDE LEVEL 112.0 MMOL/L (98-107); CREATININE FOR GFR 0.86 MG/DL (0.55-1.30); GLOMERULAR FILTRATION RATE 83.3 (>58); MAGNESIUM LEVEL 1.8 MG/DL (1.8-2.4); POTASSIUM SERUM 3.7 MMOL/L (3.5-5.1); SODIUM LEVEL 146.0 MMOL/L (136-145)
[2025-05-14 09:32] LABS: C REACTIVE PROTEIN QUANTITATIV 20.38 MG/DL (<1.0)
[2025-05-14] MEDS: LIDOCAINE 1% MDV 20 ML VIAL SC ONE (13:48)
[2025-05-14] MEDS ORDERED: CEFEPIME HCL 1 GM in DEXTROSE 5% (D5W) ADV/MINI-BAG 50 ML IV SCH (14:05)
[2025-05-14] MEDS: CEFEPIME HCL 2 GM in DEXTROSE 5% (D5W) ADV/MINI-BAG 50 ML IV SCH (14:22)
== END 2025-05-14 23:18 | disposition short-term general hospital (02) | DRG 349 ==
LOC: M ED 21:07 → CMPBEDREQ 05-13 04:32 → M ED INP 05-13 06:17 → M MSPAV 05-13 08:15
PROVIDERS: ADMIT Student in an Organized Health Care Education/Training Program; ATTEND General Practice
PROC: 0S9B3ZX Drainage of Left Hip Joint, Percutaneous Approach, Diagnostic (ICD-10-PCS; principal; 2025-05-14 12:00)
DX: T84.52XA Infection and inflammatory reaction due to internal left hip prosthesis, initial encounter (principal); A41.9 Sepsis, unspecified organism; L03.116 Cellulitis of left lower limb; F41.9 Anxiety disorder, unspecified; L02.412 Cutaneous abscess of left axilla; I10 Essential (primary) hypertension; F32.A Depression, unspecified; K21.9 Gastro-esophageal reflux disease without esophagitis; M62.838 Other muscle spasm; Y83.1 Surgical operation with implant of artificial internal device as the cause of abnormal reaction of the patient, or of later complication, without mention of misadventure at the time of the procedure; Z94.7 Corneal transplant status; Z79.01 Long term (current) use of anticoagulants; Z79.899 Other long term (current) drug therapy; Z86.718 Personal history of other venous thrombosis and embolism; Z96.642 Presence of left artificial hip joint

== ENCOUNTER → 2025-07-25 | Outpatient (CLI) | payer BC ==
[~2025-07-25] MED LIST changes: +ACET-897 PO; +ELIQ5TAB PO
[2025-07-25 17:44] LABS: BASO # 0.0 10^3/uL (0.0-0.2); BASO % 0.0 % (0.0-1.0); EOS # 0.0 10^3/uL (0.0-0.5); EOS % 0.0 % (0.0-3.0); LYMPH # 1.9 10^3/uL (1.5-5.0); LYMPH % 36.9 % (24.0-44.0); MONO # 0.5 10^3/uL (0.0-0.8); MONO % 10.5 % (2.0-8.0); NEUTROPHILS # 2.7 10^3/uL (1.5-8.5); NEUTROPHILS % 52.2 % (36.0-66.0); PLATELET COUNT, AUTOMATED 235 10^3/uL (150-450)
== END ==
LOC: M LAB 17:15
PROVIDERS: ATTEND Internal Medicine Infectious Disease
DX: M86.052 Acute hematogenous osteomyelitis, left femur (principal); M00.252 Other streptococcal arthritis, left hip

== ENCOUNTER → 2025-07-25 | Outpatient (CLI) | payer BC ==
[2025-07-25 18:16] LABS: CALCIUM LEVEL 8.6 MG/DL (8.5-10.1); CARBON DIOXIDE LEVEL 30.0 MMOL/L (20-31); CHLORIDE LEVEL 102.0 MMOL/L (98-107); CREATININE FOR GFR 0.91 MG/DL (0.55-1.30); GLOMERULAR FILTRATION RATE 77.8 (>58); POTASSIUM SERUM 4.3 MMOL/L (3.5-5.1); SODIUM LEVEL 142.0 MMOL/L (136-145)
== END ==
LOC: M LAB 17:10
PROVIDERS: ATTEND Internal Medicine
DX: E78.00 Pure hypercholesterolemia, unspecified (principal)